=== PATIENT | female | born 1940 | race Asian ===

== ENCOUNTER 2016-08-20 09:39 | Inpatient (IN) | payer OTHER, MEDICAID ==
[2016-08-20 09:52] VITALS: BP 128/76
--- NOTE | 2016-08-20 09:55 | ED Physician Chart ---
Chief Complaint/HPI - Patient Information Date Seen:: 08/20/16 Time Seen:: 09:55 Chief Complaint:: SHORTNESS OF BREATH X 2 DAYS History of Present Illness:: This 76-year-old female has had difficulty with breathing for a number of years. 2 days ago the patient developed a cough, which on one occasion was productive of blood. The patient has had fever and chills over the past 2 days. Her shortness of breath is moderate and exacerbated by exertion. She denies any associated chest pain or diaphoresis. The patient denies any dysuria or hematuria does have urinary frequency. Her past medical history is negative for diabetes, hypertension and DVT. No prior history of pulmonary embolism. The patient denies any calf tenderness or peripheral edema. The patient does have generalized myalgias. Allergies:: Allergies Allergy/AdvReac Type Severity Reaction Status Date / Time No Known Allergies Allergy Verified 08/20/16 09:51 Vitals:: Vital Signs - 8 hr 08/20/16 09:51 BP 128/76 Review of Systems - Review of Systems General/Constitutional: Fever, Chills Skin: Skin lesions, No skin lesions, No rash Head: No headache, No light-headedness Eyes: No loss of vision, No diplopia ENT: No earache, No sore throat, No tinnitus Neck: Neck pain, Stiffness, No mass noted Pulmonary: SOB, Cough, Sputum, Other (1 episode of hemoptysis.) GI: No nausea, No vomiting, No diarrhea, No pain, No hematemesis G/U: No dysuria, Frequency, No hematuria Musculoskeletal: Bone or joint pain (generalized arthralgias.), No back pain, Muscle pain Hematopoietic: No bruising, No lymphadenopathy Allergic/Immuno: No urticaria, No angioedema Neurological: No syncope, No focal symptoms, Weakness (the patient has generalized weakness.), No headache, No seizure, No confusion, No vertigo Past Medical History - Past Medical History Past Medical History: No significant medical hx (the patient denies any prior history of diabetes, hypertension, hyperlipidemia, prior DVT, or pneumonia.) Social History: Non Smoker, No Alcohol, No Drug Use, Employment:: The patient is currently living with her sister. Surgical History: Cholecystectomy, Family Medical History - Family Member Brother Hx Family Cancer: No Hx Family Coronary Artery Disease: No Hx Family Congestive Heart Failure: No Hx Family Hypertension: No Hx Family Diabetes: No Hx Family Dementia: No Hx Family HIV: No Hx Family Hepatitis: No Hx Family Tuberculosis: No Physical Exam - Physical Examination General/Constitutional: Awake, Well-developed, well-nourished, Alert, GCS 15, Non-toxic appearing, Ambulatory Other Gen/Cons comments:: Mild respiratory distress. Head: Atraumatic Eyes: Lids, conjuctiva normal, PERRL, EOMI Skin: Nl inspection, No rash, No skin lesions, No ecchymosis, Well hydrated, No lymphadenopathy ENMT: External ears, nose nl, Nasal exam nl, Lips, teeth, gums nl, Oropharynx nl , Tonsils nl Neck: Nontender, Full ROM w/o pain, No JVD, No nuchal rigidity, No mass, No stridor Respiratory: Nl effort/Exclusion Other Respiratory comments:: The patient has scattered expiratory wheezing and bibasilar rales. Cardio Vascular: RRR, No murmur, gallop, rubs, NL S1 S2 Other Cardio Vascular comments:: Good peripheral pulses all 4 extremities. GI: No tenderness/rebounding/guarding, No organomegaly, No hernia, Normal BS's, Nondistended, No mass/bruits, No McBurney tenderness Other GI comments:: Rectal exam deferred at my discretion. : No CVA tenderness Extremities: No tenderness or effusion, Full ROM, normal strength in all extremities, No edema Neuro/Psych: Alert/oriented, DTR's symmetric, Normal sensory exam, Normal motor strength, Judgement/insight normal, Mood normal, No focal deficits Other Neuro/Psych comments:: Patient was not ambulated in the emergency department. Misc: Normal back, No paraspinal tenderness Labs/Radiology/EKG Results - Lab Results Results: Laboratory Tests 08/20/16 08/20/16 08/20/16 10:09 10:09 10:09 WBC 13.8 H D RBC 4.03 Hgb 12.8 Hct 37.6 D MCV 93.2 MCH 31.8 H MCHC Differential 34.1 RDW 12.2 Plt Count 206 D MPV 7.6 Band Neutrophils % 4 Neutrophils (Manual) 85 H Lymphocytes 3 L Monocytes 8 Platelet Estimate ADEQUATE Platelet Morphology NORMAL RBC Morph Micro Appear NORMAL Sodium 136 Potassium 3.3 L Chloride 104 Carbon Dioxide 23.0 Anion Gap 12.3 BUN 9 Creatinine 0.8 Est GFR ( Amer) TNP Est GFR (Non-Af Amer) TNP BUN/Creatinine Ratio 11.3 Glucose 121 H Whole Bld Lactic Acid Calcium 9.1 Total Bilirubin 2.2 H AST 114 H ALT 92 H Alkaline Phosphatase 99 Troponin I 0.02 B-Natriuretic Peptide Total Protein 7.2 Albumin 3.7 Globulin 3.5 Albumin/Globulin Ratio 1.1 08/20/16 08/20/16 10:09 10:53 WBC RBC Hgb Hct MCV MCH MCHC Differential RDW Plt Count MPV Band Neutrophils % Neutrophils (Manual) Lymphocytes Monocytes Platelet Estimate Platelet Morphology RBC Morph Micro Appear Sodium Potassium Chloride Carbon Dioxide Anion Gap BUN Creatinine Est GFR ( Amer) Est GFR (Non-Af Amer) BUN/Creatinine Ratio Glucose Whole Bld Lactic Acid 1.33 Calcium Total Bilirubin AST ALT Alkaline Phosphatase Troponin I B-Natriuretic Peptide 207.0 H Total Protein Albumin Globulin Albumin/Globulin Ratio CHEST x-ray: No cardiomegaly. No CHF. Calcifications noted in the aortic arch. No mediastinal widening. No areas of pulmonary consolidation or infiltrate. Pleural effusions or pneumothorax. Laboratory studies: Moderate leukocytosis of 13.8. No anemia. Thrombocytopenia. Electrolytes were all within the normal range except for a mild hypokalemia of 3.3. Renal function tests are normal. Whole blood lactic acid within the normal parameters. Mild elevation of the BNP of 207. Liver enzymes show elevation of the bilirubin level, AST and ALT. Assessment - Assessment General Assessment: CASE SUMMARY: 76-year-old female presented with a 2 day history of increased shortness of breath and cough. The sputum at one point in time was positive for bleeding. The patient has had no fever but has had chills yesterday. Physical examination the patient has some scattered expiratory wheezes and bilateral basilar rales. Chest x-ray was negative for cardiomegaly or CHF. No areas of pulmonary consolidation or infiltrate were present. There was no pneumothorax or pleural effusion. Electrocardiogram showed no ischemic findings. Patient's white count was just under 14,000 and she had mild elevation of her liver enzymes and bilirubin level. The patient met criteria for sepsis was treated with 30 mL per KG of normal saline. She also was treated with 2 g of ceftriaxone intravenously. [facility] observation and treatment of sepsis. ED Septic Shock - . Is Septic Shock (SBP<90, OR Lactate>4 mmol\L) present?: No - <6hrs of presentation: Vital Signs: Vital Signs - 8 hr 08/20/16 09:51 BP 128/76 Reassessment (Disposition) - Reassessment Reassessment Condition:: Improved - Diagnosis Diagnosis:: SEPSIS without septic shock. PROBABLE PNEUMONIA. - Aftercare/Follow up Instructions Aftercare/Follow-Up Instructions:: Counseled pt regarding lab results/diagnosis & need follow up, Counseled pt & family regarding lab results/diagnosis & need follow up - Patient Disposition Discharge/Transfer:: Acute Care w/in this hosp Accepting Physician:: Dr. Jaison kong and the patient. ED Discharge Plan - Patient Disposition Admit/Discharge/Transfer: Acute Care w/in this hosp Condition at Disposition: Stable
[2016-08-20 10:20] LABS: HEMOGLOBIN 12.8 gm/dL (11.7-16.1); MEAN CELL VOLUME 93.2 fl (81-100); MEAN CORPUSCULAR HEMOGLOBIN 31.8 pg (27.0-31.0); MEAN CORPUSCULAR HGB CONC 34.1 pg (28.0-36.0); MEAN PLATELET VOLUME 7.6 fl; RED BLOOD COUNT 4.03 Mil/cmm (3.80-5.20); RED CELL DISTRIBUTION WIDTH 12.2 % (11.5-20.0)
--- NOTE | 2016-08-20 10:27 | Diagnostic Imaging Report ---
Portable chest x-ray History: Shortness of breath Allowing for portable technique the heart size is normal. Atherosclerotic calcification seen within the aortic arch. No focal pulmonary parenchymal processes. No hilar or mediastinal abnormalities. Impression: 1. No acute abnormalities 2. Atherosclerotic vascular change
[2016-08-20 10:30] LABS: HEMATOCRIT 37.6 % (35.0-45.0); PLATELET COUNT 206 Th/cmm (150-400); WHITE BLOOD COUNT 13.8 Th/cmm (4.8-10.8)
[2016-08-20 10:34] LABS: ALB/GLOB RATIO 1.1 (1.0-1.8); ALKALINE PHOSPHATASE 99 U/L (34-104); ANION GAP 12.3 (7.0-16.0); BILIRUBIN,TOTAL 2.2 mg/dL (0.3-1.0); BUN - UREA NITROGEN 9 mg/dL (7-25); BUN/CREATININE RATIO 11.3; CALCIUM SERUM 9.1 mg/dL (8.6-10.3); CHLORIDE 104 mEq/L (98-107); CREATININE - SERUM 0.8 mg/dL (0.6-1.2); GLUCOSE 121 mg/dL (70-105); POTASSIUM SERUM 3.3 mEq/L (3.5-5.1); SGOT 114 U/L (13-39); SGPT/ALT 92 U/L (7-52); SODIUM SERUM 136 mEq/L (136-145)
[2016-08-20] MEDS ORDERED: Albuterol/Ipratropium Neb 3 ML AERS HHN ONE ×2 (10:43→11:03)
[2016-08-20 11:16] LABS: BAND NEUTROPHILE 4 % (0-10); NEUTROPHILS 85 % (40-80); TOTAL CELLS COUNTED 100
[2016-08-20 11:17] LABS: PLATELET ESTIMATE ADEQUATE (NORMAL); PLATELET MORPHOLOGY NORMAL (NORMAL)
[2016-08-20] MEDS ORDERED: Sodium Chloride 0.9% 1,000 ML IV ONE (11:34)
[2016-08-20] MEDS ORDERED: cefTRIAXone 2 GM in Sodium Chloride 0.9% 100 ML IV ONE (11:38)
[2016-08-20] MEDS ORDERED: Maalox 30 mL Cup PO PRN (15:14)
[2016-08-20] MEDS ORDERED: Ipratropium Neb 0.5 mg/2.5 mL UD HHN ONE (15:23)
[2016-08-20] MEDS ORDERED: Albuterol Nebulizer 2.5mg/3mL HHN ONE (15:23)
[2016-08-20] MEDS: Albuterol Nebulizer 2.5mg/3mL IH SCH (15:26)
[2016-08-20 16:31] LABS: URINE COLOR YELLOW
[2016-08-20 16:32] LABS: URINE BILIRUBIN SMALL (NEGATIVE); URINE BLOOD NEGATIVE (NEGATIVE); URINE GLUCOSE (UA) NEGATIVE (NEGATIVE); URINE KETONE 40 mg/dL (NEGATIVE); URINE PROTEIN TRACE mg/dL (NEGATIVE)
[2016-08-20 16:33] LABS: URINE BACTERIA FEW /hpf (NONE SEEN); URINE EPITHELIAL CELLS FEW /lpf (FEW); URINE RBC NONE SEEN /hpf (0-5); URINE WBC 0-2 /hpf (0-5)
[2016-08-20] MEDS ORDERED: Pneumococcal Vaccine 0.5 mL Vial IM ONE (16:56)
[2016-08-20] MEDS ORDERED: Ipratropium Neb 0.5 mg/2.5 mL UD IH SCH (17:00)
[2016-08-20] MEDS: D5-0.45NS w/20 mEq KCL 1,000 ML IV SCH (17:56)
[2016-08-20] MEDS: methylPREDNISolone SS 40 mg Vial IVP SCH (20:52)
--- NOTE | 2016-08-20 21:18 | Admit Criteria Form ---
Admit Criteria Forms - Admit Criteria Diagnosis: SEPSIS and OTHER FEBRILE ILLNESS, W/O FOCAL INFECTION Clinical Indications for Admission to Inpatient Care ( Place 'X' for any and all applicable criteria): Admission is indicated for ANY ONE of the following (1)(2)(3)(4): [ ] I. Bacteremia [X]II. Suspected or identified specific infection requiring hospitalization (eg, meningitis, endocarditis) [ ]III. Hemodynamic instability [ ]IV. Altered mental status [ ]V. Failure or unavailability of outpatient antimicrobial treatment [ ]. Hypoxemia [ ]VII. Seizures [ ]VIII. High-risk febrile neutropenia [ ]IX. Need for parenteral antibiotic in patient who is likely to abuse vascular access device (eg, injection drug user) [A](7) [ ]X. Temperature greater than 104.9 degrees F (40.5 degrees C) (oral) [ ]XI. Inpatient admission required rather than observation care because of ANY ONE of the following: [ ]1) Specific infection identified that is too severe for outpatient treatment or observation care trial [ ]2) Metabolic disorder (eg, hypoglycemia, hyperglycemia, metabolic acidosis) that is severe or persistent [ ]3) Temperature greater than 103.1 degrees F (39.5 degrees C) ( oral) that is not responsive to observation care treatment [ ]4) IV fluid to replace significant ongoing (eg, for over 24 hours) losses (> 3 L/m2 per day) [ ]5) Supplemental oxygen or respiratory treatments for over 24 hours that is performable only in acute inpatient setting [ ]6) Parenteral nutrition regimen need that must be implemented on inpatient basis [ ]7) Strict or protective (eg, laminar flow) isolation [ ]8) Other condition, treatment or monitoring requiring inpatient admission Extended stay beyond goal length of stay may be needed for(1)(3) [ ]a) Sepsis or septic shock(22) [ ]b) Positive blood cultures [ ]c) Insufficient oral intake [ ]d) High-risk febrile neutropenia(29)(30) [ ]e) Continued fever and clinical instability [ ]f) Clinically active comorbid illness (e.g,heart failure, renal failure , diabetes) The original [facility] [employer] content created by Trisha Park has been revised. The portions of the content which have been revised are identified through the use of italic text or in bold, and Trisha [employer] has neither reviewed nor approved the modified material. All other unmodified content is copyright [facility]. Please see references footnoted in the original [facility] edition 2016 Admit Criteria Met?: Yes
[2016-08-21] MEDS: methylPREDNISolone SS 40 mg Vial IVP SCH ×3 (05:15→20:15)
[2016-08-21] MEDS: Albuterol Nebulizer 2.5mg/3mL IH SCH ×4 (07:13→19:51)
[2016-08-21] MEDS: Ipratropium Neb 0.5 mg/2.5 mL UD HHN SCH ×4 (07:14→19:51)
[2016-08-21 07:38] LABS: HEMOGLOBIN 12.2 gm/dL (11.7-16.1); NEUTROPHILE ABSOLUTE 6.7 Th/cmm (1.8-8.0)
[2016-08-21 07:44] LABS: % BASOPHILS 0.2 % (0.0-2.0); % EOSINOPHILS 0.2 % (0.0-5.0); % MONOCYTES 1.6 % (2.0-10.0); MEAN CELL VOLUME 94.8 fl (81-100); MEAN CORPUSCULAR HEMOGLOBIN 32.2 pg (27.0-31.0); MEAN CORPUSCULAR HGB CONC 33.9 pg (28.0-36.0); PLATELET COUNT 196 Th/cmm (150-400); RED CELL DISTRIBUTION WIDTH 12.6 % (11.5-20.0)
[2016-08-21] MEDS: guaiFENesin 200 MG/10 ML UDC PO PRN ×4 (07:53→23:15)
[2016-08-21] MEDS: D5-0.45NS w/20 mEq KCL 1,000 ML IV SCH (07:53)
[2016-08-21 08:04] LABS: ALKALINE PHOSPHATASE 93 U/L (34-104); BILIRUBIN,TOTAL 0.9 mg/dL (0.3-1.0); BUN - UREA NITROGEN 9 mg/dL (7-25); BUN/CREATININE RATIO 12.9; CALCIUM SERUM 8.8 mg/dL (8.6-10.3); CARBON DIOXIDE 23.1 mEq/L (21.0-31.0); CHLORIDE 109 mEq/L (98-107); CREATININE - SERUM 0.7 mg/dL (0.6-1.2); GLUCOSE 162 mg/dL (70-105); POTASSIUM SERUM 4.1 mEq/L (3.5-5.1); SGOT 54 U/L (13-39); SGPT/ALT 80 U/L (7-52); SODIUM SERUM 137 mEq/L (136-145)
--- NOTE | 2016-08-21 14:34 | Internal Medicine Prog Note ---
Internal Medicine Subjective - Subjective Patient seen and examined:: with staff, chart reviewed Patient is:: awake, verbal, interactive Patient Complaints of:: congestion, cough, other (shoulder and chest discomfort w coughing and movement) Per staff patient is:: no adverse event, poor appetite Internal Medicine Objective - Results Result Diagrams: 08/21/16 07:27 08/21/16 07:27 Recent Labs: Laboratory Last Values WBC 8.0 Th/cmm (4.8-10.8) D 08/21/16 07: RBC 3.80 Mil/cmm (3.80-5.20) 08/21/16 07: Hgb 12.2 gm/dL (11.7-16.1) 08/21/16 07: Hct 36.0 % (35.0-45.0) 08/21/16 07: MCV 94.8 fl (81-100) 08/21/16 07: MCH 32.2 pg (27.0-31.0) H 08/21/16 07: MCHC Differential 33.9 pg (28.0-36.0) 08/21/16 07: RDW 12.6 % (11.5-20.0) 08/21/16 07: Plt Count 196 Th/cmm (150-400) 08/21/16 07:27 MPV 8.0 fl 08/21/16 07:27 Neutrophils % 83.0 % (40.0-80.0) H 08/21/16 07:27 Band Neutrophils % 4 % (0-10) 08/20/16 10:09 Lymphocytes % 15.0 % (20.0-50.0) L 08/21/16 07:27 Monocytes % 1.6 % (2.0-10.0) L 08/21/16 07:27 Eosinophils % 0.2 % (0.0-5.0) 08/21/16 07:27 Basophils % 0.2 % (0.0-2.0) 08/21/16 07:27 Neutrophils (Manual) 85 % (40-80) H 08/20/16 10:09 Lymphocytes 3 % (20-50) L 08/20/16 10:09 Monocytes 8 % (2-10) 08/20/16 10:09 Platelet Estimate ADEQUATE (NORMAL) 08/20/16 10:09 Platelet Morphology NORMAL (NORMAL) 08/20/16 10:09 RBC Morph Micro Appear NORMAL (NORMAL) 08/20/16 10:09 Sodium 137 mEq/L (136-145) 08/21/16 07:27 Potassium 4.1 mEq/L (3.5-5.1) 08/21/16 07:27 Chloride 109 mEq/L (98-107) H 08/21/16 07:27 Carbon Dioxide 23.1 mEq/L (21.0-31.0) 08/21/16 07:27 Anion Gap 9.0 (7.0-16.0) 08/21/16 07:27 BUN 9 mg/dL (7-25) 08/21/16 07:27 Creatinine 0.7 mg/dL (0.6-1.2) 08/21/16 07:27 Est GFR ( Amer) TNP 08/21/16 07:27 Est GFR (Non-Af Amer) TNP 08/21/16 07:27 BUN/Creatinine Ratio 12.9 08/21/16 07:27 Glucose 162 mg/dL (70-105) H 08/21/16 07:27 Hemoglobin A1c % 5.6 % (4.0-6.0) 08/21/16 07:27 Whole Bld Lactic Acid 1.33 mmol/L (0.60-1.99) 08/20/16 10:53 Calcium 8.8 mg/dL (8.6-10.3) 08/21/16 07:27 Magnesium 2.0 mg/dL (1.9-2.7) 08/21/16 07:27 Total Bilirubin 0.9 mg/dL (0.3-1.0) 08/21/16 07:27 AST 54 U/L (13-39) H 08/21/16 07:27 ALT 80 U/L (7-52) H 08/21/16 07:27 Alkaline Phosphatase 93 U/L (34-104) 08/21/16 07:27 Troponin I 0.02 ng/mL (0.01-0.05) 08/20/16 10:09 B-Natriuretic Peptide 207.0 pg/mL (5.0-100.0) H 08/20/16 10:09 Total Protein 6.6 gm/dL (6.0-8.3) 08/21/16 07:27 Albumin 3.3 gm/dL (3.7-5.3) L 08/21/16 07:27 Globulin 3.3 gm/dL 08/21/16 07:27 Albumin/Globulin Ratio 1.0 (1.0-1.8) 08/21/16 07:27 TSH 0.52 uIU/ml (0.34-5.60) 08/21/16 07:27 Urine Source CLEAN C 08/20/16 16:00 Urine Color YELLOW 08/20/16 16:00 Urine Clarity SLIGHT HAZY (CLEAR) 08/20/16 16:00 Urine pH 7.0 08/20/16 16:00 Ur Specific [place] 1.015 (1.005-1.030) 08/20/16 16:00 Urine Protein TRACE mg/dL (NEGATIVE) 08/20/16 16:00 Urine Glucose (UA) NEGATIVE mg/dL (NEGATIVE) 08/20/16 16:00 Urine Ketones 40 mg/dL (NEGATIVE) H 08/20/16 16:00 Urine Blood NEGATIVE (NEGATIVE) 08/20/16 16:00 Urine Nitrate NEGATIVE (NEGATIVE) 08/20/16 16:00 Urine Bilirubin SMALL (NEGATIVE) H 08/20/16 16:00 Urine Urobilinogen 2.0 E.U./dL (0.2 - 1.0) 08/20/16 16:00 Ur Leukocyte Esterase TRACE (NEGATIVE) H 08/20/16 16:00 Urine RBC NONE SEEN /hpf (0-5) 08/20/16 16:00 Urine WBC 0-2 /hpf (0-5) 08/20/16 16:00 Ur Epithelial Cells FEW /lpf (FEW) 08/20/16 16:00 Urine Bacteria FEW /hpf (NONE SEEN) 08/20/16 16:00 - Physical Exam Vitals and I&O: Vital Signs Temp 98.5 F 08/21/16 08:00 Pulse 62 08/21/16 11:11 Resp 19 08/21/16 12:00 BP 107/66 08/21/16 08:00 Pulse Ox 98 08/21/16 11:11 Intake & Output 08/20/16 08/21/16 08/21/16 18:59 06:59 18:59 Intake Total 600 1000 Balance 600 1000 Intake: Intake, IV Amount 100 1000 Cefepime 1 gm In Dextrose 100 5% 50 ml @ 100 mls/hr IV Q12H [facility] Rx#:[id number] D5-0.45NS w/20 mEq KCL 1, 1000 000 ml @ 75 mls/hr IV . [id number] [facility] Rx#:[id number] Oral 500 Other: # Voids 2 Stool Characteristics Soft Soft Formed Formed Active Medications: Current Medications Acetaminophen (Tylenol) 650 mg PO Q4HR PRN PRN Reason: Pain or Fever >101 Stop: 10/19/16 15:13 Last Admin: 08/21/16 12:57 Dose: 650 mg Al Hydrox/Mg Hydrox/Simethicone (Maalox) 30 ml PO Q6HR PRN PRN Reason: Constipation Stop: 10/19/16 15:13 Albuterol Sulfate (Albuterol 2.5mg/3ml Neb Ud) 2.5 mg IH QID [facility] Stop: 10/19/16 16:59 Last Admin: 08/21/16 11:05 Dose: 2.5 mg Guaifenesin (Robitussin) 200 mg PO Q4HR PRN PRN Reason: Cough or Congestion Stop: 10/19/16 15:13 Last Admin: 08/21/16 12:37 Dose: 200 mg Guaifenesin (Mucinex) 600 mg PO Q12HR [facility] Stop: 10/20/16 20:59 Heparin Sodium (Porcine) (Heparin) 5,000 units SUBQ Q12HR [facility] Stop: 10/19/16 20:59 Last Admin: 08/21/16 08:01 Dose: 5,000 units Cefepime HCl 1 gm/ Dextrose 50 mls @ 100 mls/hr IV Q12H [facility] Stop: 10/19/16 15:14 Last Infusion: 08/21/16 03:39 Dose: Infused Sodium Chloride (Nacl 0.45%) 1,000 mls @ 80 mls/hr IV .[id number] [facility] Stop: 10/20/16 14:44 Ipratropium [place] (Atrovent Neb 0.5mg/2.5ml) 0.5 mg HHN QIDRT [facility] Stop: 10/19/16 16:59 Last Admin: 08/21/16 11:05 Dose: 0.5 mg Ondansetron HCl (Zofran) 4 mg IV Q8H PRN PRN Reason: Nausea / Vomiting Stop: 10/19/16 15:13 Tramadol HCl (Ultram) 50 mg PO Q6HR PRN PRN Reason: Pain (Moderate) Stop: 10/20/16 14:30 Zolpidem Tartrate (Ambien) 10 mg PO HS PRN PRN Reason: Insomnia Stop: 10/19/16 15:12 Last Admin: 08/20/16 21:52 Dose: 10 mg General: congested HEENT: NC/AT, PERRLA Neck: Supple, No JVD Lungs: congested, wheezing, rales, ronchi Cardiovascular: RRR, Normal S1, Normal S2 Abdomen: soft non-tender, globular, positive bowel sound Extremities: excoriation Neurological: no change - Procedures Procedures: Procedures Procedure Code Date D & C NEC 69.09 12/05/95 DILATION AND CURETTAGE 19902 12/05/95 DX BRONCHOSCOPE/LAVAGE 69421 03/22/10 ENDOSCOPIC BRONCHIAL BX 33.24 03/22/10 IRIDECTOMY NEC 12.14 03/25/09 LAPAROSCOPIC CHOLECYSTECTOMY 51.23 02/20/12 LAPAROSCOPIC CHOLECYSTECTOMY 76920 02/20/12 REVISION OF IRIS 93579 03/25/09 Internal Medicine Assmt/Plan - Assessment Assessment: fever sepsis acute bronchitis and copd exac hyperglycemia leukocytosis hypokalemia - Plan Plan: cont on iv abx cont on iv hydration correct lytes jenna rn Nutritional Asmnt/Malnutr-PDOC - Dietary Evaluation Malnutrition Findings (Please click <Entered> for more info): Nutritional Asmnt/Malnutrition Start: 08/21/16 11: 55 Text: Status: Complete Freq: Document 08/21/16 11:55 [facility] (Rec: 08/21/16 12:02 [facility] [id number]) Nutritional Asmnt/Malnutrition Patient General Information Nutritional Screening High Risk Screening Diagnosis Sepsis without septic shock, probable pneumonia Pertinent Medical Hx/Surgical Hx None Subjective Information Pt is a 76-year-old female admitted with chief complaint of shortness of breath for 2 days. Pt was awake and alert during time of visit. Pt is a good historian. RD offered diet education but pt declined . Pt appears well nourished with no signs of muscle or fat depletion. Teeth intact. Pt reports UBW 125# one year ago and recently weighed 118# at clinic. Pt admits she does not eat breakfast regularly at home, except for coffee, but she would like to change that lifestyle. Current Diet Order/ Nutrition Support Low sodium Patient / S.O Can Pertinent Medications Cefepime, Solu-Medrol, Zofran, D5-0.45 ns with 20 Meq KCl Pertinent Labs (08/21) Glucose 162H (likely related to steroids), AST 54H and ALT 80H (improved) Nutritional Hx/Data Height 1.5 m Height (Calculated Centimeters) 149.9 Current Weight (lbs) 53.524 kg Weight (Calculated Kilograms) 53.5 Weight (Calculated Grams) 18757.9 Usual body Weight (lbs) 125 Recent Weight Change Yes Weight Status Approriate GI Symptoms GI Symptoms None Food Allergies No Cultural/Ethnic/Gnosticist Belief No cultural preferences given, however, pt does not eat beef . She states she like vegetables and banana. Usual diet at home Regular Skin Integrity/Comment: Basim 21. Skin intact. Current %PO Good (75-100%) Estimated Nutritional Goals BEE in Kcals: Using Current wt Calories/Kcals/Kg Based on CBW 53.6 kg with consideration of sepsis Kcals Calculated 8628-7234 kcals/day (30-35 kcals/kg) Protein: Using Current wt Protein g/kg: Based on CBW 53.6 kg with consideration of sepsis Protein Calculated 64-80 gm/day (1.2-1.5 gm/kg) Fluid: ml 8457-1484 ml/day (1 ml/kcal) Nutritional Problem 1. Problem Problem Increased energy and protein needs related to Etiology increased metabolic demands as evidenced by Signs/Symptoms: diagnosis sepsis and possible pneumonia (per ER report). Malnutrition Alert Is there a minimum of two criteria No selected? Query Text:Check all the applicable criteria. A minimum of two criteria are recommended for diagnosis of either severe or non-severe malnutrition. Malnutrition Related to Morbid Obesity Malnutrition related to morbid obesity No Intervention/Recommendation Comments 1. Continue with current diet. Current diet and PO intake is adequate to meet estimated nutritional needs. [place] food preferences. Expected Outcomes/Goals Expected Outcomes/Goals Have pt meet at least 75% of estimated nutritional needs. Physician Parameters for PEM Normal Weight % 90% - 110% (Normal) Body Mass Index (BMI) 19 - 24 (Normal) Serum Albumin (g/dl) 3.1 - 3.4 (Mild) 08/21/16 12:02 Dietitian Notes by Rupa Barnhart Nutrition Note Initial Nutrition Assessment completed by Rupa Barnhart on 08/21/16. Please refer to nutrition assessment under Patient Care tab of EMR. Nutrition Recommendations: 1. Continue with current diet. Current diet and PO intake is adequate to meet estimated nutritional needs. [place] food preferences. F/U in 3-5 days as Moderate risk, 08/24-08/26. Initialized on 08/21/16 12:02 - END OF NOTE
[2016-08-21] MEDS: Sodium Chloride 0.45% 1,000 ML IV SCH (16:22)
[2016-08-22] MEDS: methylPREDNISolone SS 40 mg Vial IVP SCH ×3 (05:03→21:39)
[2016-08-22] MEDS: Sodium Chloride 0.45% 1,000 ML IV SCH ×2 (05:08→18:45)
[2016-08-22] MEDS: Albuterol Nebulizer 2.5mg/3mL IH SCH ×4 (07:09→19:28)
[2016-08-22] MEDS: Ipratropium Neb 0.5 mg/2.5 mL UD HHN SCH ×4 (07:09→19:28)
[2016-08-22] MEDS: guaiFENesin 200 MG/10 ML UDC PO PRN (09:09)
--- NOTE | 2016-08-22 09:12 | Diagnostic Imaging Report ---
Left shoulder (3 views) HISTORY Degenerative changes with marked narrowing and mild hypertrophic bone formation about the acromioclavicular joint. Mild degenerative changes noted along the margin of the greater tuberosity. No acute abnormalities. No fractures. No dislocation. IMPRESSION: 1. No acute abnormalities 2. Degenerative changes
--- NOTE | 2016-08-22 10:35 | History & Physical ---
CHIEF COMPLAINT: Fever and shortness of breath. HISTORY OF PRESENT ILLNESS: This is a 76-year-old [place] female with history of asthma, who was admitted secondary to fever, ongoing for about a week, increasing shortness of breath. The patient was evaluated in the ER, had a fever of 101. The patient was also with elevated white count. The patient's complaints are consistent with sepsis. PAST MEDICAL HISTORY: As mentioned in the history of present illness. PAST SURGICAL HISTORY: ____ surgery. ALLERGIES: ASMANEX and ATROVENT. FAMILY HISTORY: Noncontributory. SOCIAL HISTORY: Exposed to smoking. Nondrinker. Denies any drug use. 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 REVIEW OF SYSTEMS: GENERAL: Complains of not feeling well. HEENT: No blurred vision. NECK: No neck pain. LUNGS: The patient with asthma. The patient has been exposed to a lot of smoking. HEART: The patient denies hypertension or coronary artery disease. ABDOMEN: No nausea, vomiting, or abdominal pain. GENITOURINARY: The patient denies increased frequency or dysuria. NEUROLOGIC: No headache, seizure, or syncope. PSYCHIATRIC: Stable. PHYSICAL EXAMINATION: VITAL SIGNS: Blood pressure 104/58, respirations 18, temperature 101.7. GENERAL: Elderly female, appears her stated age. NECK: Supple. No mass. LUNGS: Decreased breath sounds, few rhonchi. HEART: Regular rate and rhythm without appreciable murmur. ABDOMEN: Soft and nontender. EXTREMITIES: No clubbing, cyanosis, or edema. NEUROLOGIC: Limited. LABORATORY DATA: WBC 13.8, hemoglobin 12, platelets 206. Sodium 136, potassium 3.2, BUN 9, creatinine 0.8, blood sugar 121. AST and ALT 140 and 92 respectively. BNP ____. ASSESSMENT AND PLAN: Fever, sepsis, acute bronchitis, asthma, acute asthma exacerbation; leukocytosis; hypokalemia; elevated liver function tests. We will continue the patient on oxygen and bronchodilator treatment, continue intravenous antibiotic, blood gas have been sent. Continue with sepsis protocol. We will review the patient's chest x-ray. We will check the patient's hemoglobin A1c as well. We will continue on intravenous antibiotics and intravenous hydration. We will continue to monitor the patient closely. JOB# [id number]
--- NOTE | 2016-08-22 11:59 | Internal Medicine Prog Note ---
Internal Medicine Subjective - Subjective Service Date: 08/22/16 (awake, alert, noted with productive cough, per patient she coughed up blood earlier this morning and lastnight she states it was thick associated with small clot of blood. ) Patient seen and examined:: with staff Patient is:: awake Internal Medicine Objective - Results Result Diagrams: 08/21/16 07:27 08/21/16 07:27 Recent Labs: Laboratory Last Values WBC 8.0 Th/cmm (4.8-10.8) D 08/21/16 07:27 RBC 3.80 Mil/cmm (3.80-5.20) 08/21/16 07:27 Hgb 12.2 gm/dL (11.7-16.1) 08/21/16 07: Hct 36.0 % (35.0-45.0) 08/21/16 07: MCV 94.8 fl (81-100) 08/21/16 07: MCH 32.2 pg (27.0-31.0) H 08/21/16 07: MCHC Differential 33.9 pg (28.0-36.0) 08/21/16 07:27 RDW 12.6 % (11.5-20.0) 08/21/16 07:27 Plt Count 196 Th/cmm (150-400) 08/21/16 07:27 MPV 8.0 fl 08/21/16 07:27 Neutrophils % 83.0 % (40.0-80.0) H 08/21/16 07:27 Band Neutrophils % 4 % (0-10) 08/20/16 10:09 Lymphocytes % 15.0 % (20.0-50.0) L 08/21/16 07:27 Monocytes % 1.6 % (2.0-10.0) L 08/21/16 07:27 Eosinophils % 0.2 % (0.0-5.0) 08/21/16 07:27 Basophils % 0.2 % (0.0-2.0) 08/21/16 07:27 Neutrophils (Manual) 85 % (40-80) H 08/20/16 10:09 Lymphocytes 3 % (20-50) L 08/20/16 10:09 Monocytes 8 % (2-10) 08/20/16 10:09 Platelet Estimate ADEQUATE (NORMAL) 08/20/16 10:09 Platelet Morphology NORMAL (NORMAL) 08/20/16 10:09 RBC Morph Micro Appear NORMAL (NORMAL) 08/20/16 10:09 Sodium 137 mEq/L (136-145) 08/21/16 07:27 Potassium 4.1 mEq/L (3.5-5.1) 08/21/16 07:27 Chloride 109 mEq/L (98-107) H 08/21/16 07:27 Carbon Dioxide 23.1 mEq/L (21.0-31.0) 08/21/16 07:27 Anion Gap 9.0 (7.0-16.0) 08/21/16 07:27 BUN 9 mg/dL (7-25) 08/21/16 07:27 Creatinine 0.7 mg/dL (0.6-1.2) 08/21/16 07:27 Est GFR ( Amer) TNP 08/21/16 07:27 Est GFR (Non-Af Amer) TNP 08/21/16 07:27 BUN/Creatinine Ratio 12.9 08/21/16 07:27 Glucose 162 mg/dL (70-105) H 08/21/16 07:27 Hemoglobin A1c % 5.6 % (4.0-6.0) 08/21/16 07:27 Whole Bld Lactic Acid 1.33 mmol/L (0.60-1.99) 08/20/16 10:53 Calcium 8.8 mg/dL (8.6-10.3) 08/21/16 07:27 Magnesium 2.0 mg/dL (1.9-2.7) 08/21/16 07:27 Total Bilirubin 0.9 mg/dL (0.3-1.0) 08/21/16 07:27 AST 54 U/L (13-39) H 08/21/16 07:27 ALT 80 U/L (7-52) H 08/21/16 07:27 Alkaline Phosphatase 93 U/L (34-104) 08/21/16 07:27 Troponin I 0.02 ng/mL (0.01-0.05) 08/20/16 10:09 B-Natriuretic Peptide 207.0 pg/mL (5.0-100.0) H 08/20/16 10:09 Total Protein 6.6 gm/dL (6.0-8.3) 08/21/16 07:27 Albumin 3.3 gm/dL (3.7-5.3) L 08/21/16 07:27 Globulin 3.3 gm/dL 08/21/16 07:27 Albumin/Globulin Ratio 1.0 (1.0-1.8) 08/21/16 07:27 TSH 0.52 uIU/ml (0.34-5.60) 08/21/16 07:27 Urine Source CLEAN C 08/20/16 16:00 Urine Color YELLOW 08/20/16 16:00 Urine Clarity SLIGHT HAZY (CLEAR) 08/20/16 16:00 Urine pH 7.0 08/20/16 16:00 Ur Specific [place] 1.015 (1.005-1.030) 08/20/16 16:00 Urine Protein TRACE mg/dL (NEGATIVE) 08/20/16 16:00 Urine Glucose (UA) NEGATIVE mg/dL (NEGATIVE) 08/20/16 16:00 Urine Ketones 40 mg/dL (NEGATIVE) H 08/20/16 16:00 Urine Blood NEGATIVE (NEGATIVE) 08/20/16 16:00 Urine Nitrate NEGATIVE (NEGATIVE) 08/20/16 16:00 Urine Bilirubin SMALL (NEGATIVE) H 08/20/16 16:00 Urine Urobilinogen 2.0 E.U./dL (0.2 - 1.0) 08/20/16 16:00 Ur Leukocyte Esterase TRACE (NEGATIVE) H 08/20/16 16:00 Urine RBC NONE SEEN /hpf (0-5) 08/20/16 16:00 Urine WBC 0-2 /hpf (0-5) 08/20/16 16:00 Ur Epithelial Cells FEW /lpf (FEW) 08/20/16 16:00 Urine Bacteria FEW /hpf (NONE SEEN) 08/20/16 16:00 - Physical Exam Vitals and I&O: Vital Signs Temp 98.7 F 08/22/16 08:00 Pulse 66 08/22/16 11:08 Resp 18 08/22/16 11:08 BP 129/68 08/22/16 08:00 Pulse Ox 95 08/22/16 11:08 Intake & Output 08/21/16 08/22/16 08/22/16 18:59 06:59 18:59 Intake Total 2700 1550 Balance 2700 1550 Intake: Intake, IV Amount 1050 1050 Cefepime 1 gm In Dextrose 50 50 5% 50 ml @ 100 mls/hr IV Q12H [facility] Rx#:[id number] D5-0.45NS w/20 mEq KCL 1, 1000 000 ml @ 75 mls/hr IV . [id number] [facility] Rx#:[id number] Sodium Chloride 0.45% 1, 1000 000 ml @ 80 mls/hr IV . [id number] [facility] Rx#:[id number] Oral 1650 500 Other: # Voids 4 2 # Bowel Movements 1 Stool Characteristics Soft Formed Active Medications: Current Medications Acetaminophen (Tylenol) 650 mg PO Q4HR PRN PRN Reason: Pain or Fever >101 Stop: 10/19/16 15:13 Last Admin: 08/21/16 12:57 Dose: 650 mg Al Hydrox/Mg Hydrox/Simethicone (Maalox) 30 ml PO Q6HR PRN PRN Reason: Constipation Stop: 10/19/16 15:13 Albuterol Sulfate (Albuterol 2.5mg/3ml Neb Ud) 2.5 mg IH QID [facility] Stop: 10/19/16 16:59 Last Admin: 08/22/16 11:02 Dose: 2.5 mg Guaifenesin (Robitussin) 200 mg PO Q4HR PRN PRN Reason: Cough or Congestion Stop: 10/19/16 15:13 Last Admin: 08/22/16 09:09 Dose: 200 mg Guaifenesin (Mucinex) 600 mg PO Q12HR [facility] Stop: 10/20/16 20:59 Last Admin: 08/22/16 09:09 Dose: 600 mg Heparin Sodium (Porcine) (Heparin) 5,000 units SUBQ Q12HR [facility] Stop: 10/19/16 20:59 Last Admin: 08/22/16 09:09 Dose: 5,000 units Cefepime HCl 1 gm/ Dextrose 50 mls @ 100 mls/hr IV Q12H [facility] Stop: 10/19/16 15:14 Last Infusion: 08/22/16 03:42 Dose: Infused Sodium Chloride (Nacl 0.45%) 1,000 mls @ 80 mls/hr IV .[id number] [facility] Stop: 10/20/16 14:44 Last Admin: 08/22/16 05:08 Dose: 80 mls/hr Ipratropium [place] (Atrovent Neb 0.5mg/2.5ml) 0.5 mg HHN QIDRT [facility] Stop: 10/19/16 16:59 Last Admin: 08/22/16 11:02 Dose: 0.5 mg Methylprednisolone Sodium Succinate (Solu-Medrol) 40 mg IVP Q8HR [facility] Stop: 10/20/16 14:29 Last Admin: 08/22/16 05:03 Dose: 40 mg Ondansetron HCl (Zofran) 4 mg IV Q8H PRN PRN Reason: Nausea / Vomiting Stop: 10/19/16 15:13 Tramadol HCl (Ultram) 50 mg PO Q6HR PRN PRN Reason: Pain (Moderate) Stop: 10/20/16 14:30 Last Admin: 08/21/16 23:15 Dose: 50 mg Zolpidem Tartrate (Ambien) 10 mg PO HS PRN PRN Reason: Insomnia Stop: 10/19/16 15:12 Last Admin: 08/21/16 23:15 Dose: 10 mg General: weak, alert HEENT: NC/AT Neck: Supple Lungs: ronchi Cardiovascular: RRR, Normal S1, Normal S2, without murmur Abdomen: soft non-tender, non-distended, positive bowel sound - Procedures Procedures: Procedures Procedure Code Date D & C NEC 69.09 12/05/95 DILATION AND CURETTAGE 39159 12/05/95 DX BRONCHOSCOPE/LAVAGE 53330 03/22/10 ENDOSCOPIC BRONCHIAL BX 33.24 03/22/10 IRIDECTOMY NEC 12.14 03/25/09 LAPAROSCOPIC CHOLECYSTECTOMY 51.23 02/20/12 LAPAROSCOPIC CHOLECYSTECTOMY 67071 02/20/12 REVISION OF IRIS 62310 03/25/09 Internal Medicine Assmt/Plan - Assessment Assessment: fever sepsis acute bronchitis and copd exac hyperglycemia leukocytosis hypokalemia - Plan Plan: sputum cx ivabx monitor for fever f/u labs bronchodilators cpm Nutritional Asmnt/Malnutr-PDOC - Dietary Evaluation Malnutrition Findings (Please click <Entered> for more info): Nutritional Asmnt/Malnutrition Start: 08/21/16 11: 55 Text: Status: Complete Freq: Document 08/21/16 11:55 [facility] (Rec: 08/21/16 12:02 [facility] [id number]) Nutritional Asmnt/Malnutrition Patient General Information Nutritional Screening High Risk Screening Diagnosis Sepsis without septic shock, probable pneumonia Pertinent Medical Hx/Surgical Hx None Subjective Information Pt is a 76-year-old female admitted with chief complaint of shortness of breath for 2 days. Pt was awake and alert during time of visit. Pt is a good historian. RD offered diet education but pt declined . Pt appears well nourished with no signs of muscle or fat depletion. Teeth intact. Pt reports UBW 125# one year ago and recently weighed 118# at clinic. Pt admits she does not eat breakfast regularly at home, except for coffee, but she would like to change that lifestyle. Current Diet Order/ Nutrition Support Low sodium Patient / S.O Can Pertinent Medications Cefepime, Solu-Medrol, Zofran, D5-0.45 ns with 20 Meq KCl Pertinent Labs (08/21) Glucose 162H (likely related to steroids), AST 54H and ALT 80H (improved) Nutritional Hx/Data Height 4 ft 11 in Height (Calculated Centimeters) 149.9 Current Weight (lbs) 118 lb Weight (Calculated Kilograms) 53.5 Weight (Calculated Grams) 42911.9 Usual body Weight (lbs) 125 Recent Weight Change Yes Weight Status Approriate GI Symptoms GI Symptoms None Food Allergies No Cultural/Ethnic/Lutheran Belief No cultural preferences given, however, pt does not eat beef . She states she like vegetables and banana. Usual diet at home Regular Skin Integrity/Comment: Basim 21. Skin intact. Current %PO Good (75-100%) Estimated Nutritional Goals BEE in Kcals: Using Current wt Calories/Kcals/Kg Based on CBW 53.6 kg with consideration of sepsis Kcals Calculated 2706-5870 kcals/day (30-35 kcals/kg) Protein: Using Current wt Protein g/kg: Based on CBW 53.6 kg with consideration of sepsis Protein Calculated 64-80 gm/day (1.2-1.5 gm/kg) Fluid: ml 2409-1515 ml/day (1 ml/kcal) Nutritional Problem 1. Problem Problem Increased energy and protein needs related to Etiology increased metabolic demands as evidenced by Signs/Symptoms: diagnosis sepsis and possible pneumonia (per ER report). Malnutrition Alert Is there a minimum of two criteria No selected? Query Text:Check all the applicable criteria. A minimum of two criteria are recommended for diagnosis of either severe or non-severe malnutrition. Malnutrition Related to Morbid Obesity Malnutrition related to morbid obesity No Intervention/Recommendation Comments 1. Continue with current diet. Current diet and PO intake is adequate to meet estimated nutritional needs. [place] food preferences. Expected Outcomes/Goals Expected Outcomes/Goals Have pt meet at least 75% of estimated nutritional needs. Physician Parameters for PEM Normal Weight % 90% - 110% (Normal) Body Mass Index (BMI) 19 - 24 (Normal) Serum Albumin (g/dl) 3.1 - 3.4 (Mild) 08/21/16 12:02 Dietitian Notes by Rupa Barnhart Nutrition Note Initial Nutrition Assessment completed by Rupa Barnhart on 08/21/16. Please refer to nutrition assessment under Patient Care tab of EMR. Nutrition Recommendations: 1. Continue with current diet. Current diet and PO intake is adequate to meet estimated nutritional needs. [place] food preferences. F/U in 3-5 days as Moderate risk, 38-3. Initialized on 08/21/16 12:02 - END OF NOTE
[2016-08-22 12:45] LABS: BE(B) 0.5 mmol/L (-3.0-3.0); HCO3 24.6 mmol/L (20.0-26.0); pH 7.43 (7.35-7.45)
[2016-08-22 12:46] LABS: ABG SOURCE art; CRITICAL VALUES REPORTED BY SH; FIO2 21
--- NOTE | 2016-08-22 16:10 | Diagnostic Imaging Report ---
CT scan of the chest without intravenous contrast HISTORY: Mass. Total DLP equals 174 CTDI equals 4.9 Axial sections were obtained from a level above the clavicles down to level below the diaphragm. The overall heart size is normal. No abnormal mediastinal masses. Evaluation the hilar structures is limited due to the absence of intravenous contrast. No definite abnormal masses. Hazy infiltrate noted in the right lower lobe with somewhat more focal consolidation and/or atelectasis seen posteriorly within the lower lobes. Pleural thickening also noted in the right left lower hemithoracic areas. Minimal faint focal infiltrate seen in the lingular region and left lung. The overall appearance suggests a possible chronic etiology. Superimposed pneumonia cannot be excluded. Clinical correlation is needed. Limited sections below the diaphragm demonstrate surgical clips in the [place] hepatis region consistent with prior cholecystectomy. Prominent vasculature noted in the splenic hilar region. Significance should be correlated clinically. IMPRESSION: 1. Mild hazy infiltrate within the right lower lobe with somewhat more focal consolidation and/or atelectasis posteriorly within the lower lobes bilaterally. Associated pleural thickening. The appearance suggests a chronic etiology. However, pneumonia cannot be excluded. Clinical correlation is needed.
[2016-08-22] MEDS ORDERED: IOHEXOL 300MG/ML 100 ML VIAL ONE (19:20)
[2016-08-22] MEDS ORDERED: IOHEXOL 350mg/mL 100mL Bottle IVP ONE (19:58)
[2016-08-23] MEDS: methylPREDNISolone SS 40 mg Vial IVP SCH ×2 (05:04→20:40)
[2016-08-23] MEDS: Sodium Chloride 0.45% 1,000 ML IV SCH (05:04)
[2016-08-23 05:10] LABS: HEP B CORE IGM Negative (Negative); HEP C ANTIBODY <0.1 s/co ratio (0.0-0.9)
[2016-08-23 06:13] LABS: FOLIC ACID 9.9 ng/mL (>3.0)
[2016-08-23 06:40] LABS: ANION GAP 9.5 (7.0-16.0); BUN - UREA NITROGEN 13 mg/dL (7-25); BUN/CREATININE RATIO 21.7; CALCIUM SERUM 8.8 mg/dL (8.6-10.3); CARBON DIOXIDE 25.3 mEq/L (21.0-31.0); CHLORIDE 108 mEq/L (98-107); CREATININE - SERUM 0.6 mg/dL (0.6-1.2); GLUCOSE 123 mg/dL (70-105); POTASSIUM SERUM 3.8 mEq/L (3.5-5.1); SODIUM SERUM 139 mEq/L (136-145)
[2016-08-23 06:42] LABS: HEMATOCRIT 34.6 % (35.0-45.0); MEAN CELL VOLUME 92.5 fl (81-100); MEAN CORPUSCULAR HGB CONC 34.7 pg (28.0-36.0); MEAN PLATELET VOLUME 8.2 fl; RED BLOOD COUNT 3.75 Mil/cmm (3.80-5.20); RED CELL DISTRIBUTION WIDTH 12.7 % (11.5-20.0)
[2016-08-23 06:53] LABS: PLATELET COUNT 270 Th/cmm (150-400); WHITE BLOOD COUNT 16.9 Th/cmm (4.8-10.8)
[2016-08-23] MEDS: Ipratropium Neb 0.5 mg/2.5 mL UD HHN SCH ×4 (08:33→20:06)
[2016-08-23] MEDS: Albuterol Nebulizer 2.5mg/3mL IH SCH ×4 (08:33→20:07)
--- NOTE | 2016-08-23 09:06 | Diagnostic Imaging Report ---
Portable chest x-ray History: Cough Allowing for portable technique the heart size is normal. Atherosclerotic calcification seen in the aorta. No focal pulmonary parenchymal processes. No hilar or mediastinal abnormalities. Impression: No acute abnormalities.
[2016-08-23 09:12] LABS: BAND NEUTROPHILE 6 % (0-10); NEUTROPHILS 84 % (40-80); PLATELET ESTIMATE ADEQUATE (NORMAL); PLATELET MORPHOLOGY NORMAL (NORMAL); TOTAL CELLS COUNTED 100
--- NOTE | 2016-08-23 11:36 | Internal Medicine Prog Note ---
Internal Medicine Subjective - Subjective Service Date: 08/23/16 (awake, still feels a bit weak, noted with productive cough, afebrile) Patient seen and examined:: with staff Internal Medicine Objective - Results Result Diagrams: 08/23/16 06:00 08/23/16 06:00 Recent Labs: Laboratory Last Values WBC 16.9 Th/cmm (4.8-10.8) H D 08/23/16 06:00 RBC 3.75 Mil/cmm (3.80-5.20) L 08/23/16 06:00 Hgb 12.0 gm/dL (11.7-16.1) 08/23/16 06:00 Hct 34.6 % (35.0-45.0) L 08/23/16 06:00 MCV 92.5 fl (81-100) 08/23/16 06:00 MCH 32.0 pg (27.0-31.0) H 08/23/16 06:00 MCHC Differential 34.7 pg (28.0-36.0) 08/23/16 06:00 RDW 12.7 % (11.5-20.0) 08/23/16 06:00 Plt Count 270 Th/cmm (150-400) D 08/23/16 06:00 MPV 8.2 fl 08/23/16 06:00 Neutrophils % 83.0 % (40.0-80.0) H 08/21/16 07:27 Band Neutrophils % 6 % (0-10) 08/23/16 06:00 Lymphocytes % 15.0 % (20.0-50.0) L 08/21/16 07:27 Monocytes % 1.6 % (2.0-10.0) L 08/21/16 07:27 Eosinophils % 0.2 % (0.0-5.0) 08/21/16 07:27 Basophils % 0.2 % (0.0-2.0) 08/21/16 07:27 Neutrophils (Manual) 84 % (40-80) H 08/23/16 06:00 Lymphocytes 8 % (20-50) L 08/23/16 06:00 Monocytes 2 % (2-10) 08/23/16 06:00 Nucleated RBCs 1.0 % (0-0) H 08/23/16 06:00 Platelet Estimate ADEQUATE (NORMAL) 08/23/16 06:00 Platelet Morphology NORMAL (NORMAL) 08/23/16 06:00 RBC Morph Micro Appear NORMAL (NORMAL) 08/23/16 06:00 Specimen Source art 08/22/16 12:26 Sample Site RB 08/22/16 12:26 pH 7.43 (7.35-7.45) 08/22/16 12:26 pCO2 37.0 mmHg (35.0-45.0) 08/22/16 12:26 pO2 56.0 mmHg (80.0-100.0) L 08/22/16 12:26 HCO3 24.6 mmol/L (20.0-26.0) 08/22/16 12:26 Base Excess 0.5 mmol/L (-3.0-3.0) 08/22/16 12:26 O2 Saturation 90.0 % (92.0-100.0) L 08/22/16 12:26 Mike Test NA 08/22/16 12:26 Vent Rate NA 08/22/16 12:26 Inspired O2 21 08/22/16 12:26 Tidal Volume NA 08/22/16 12:26 PEEP NA 08/22/16 12:26 Pressure (ins/psv/peep) NA 08/22/16 12:26 Critical Value SH 08/22/16 12:26 Sodium 139 mEq/L (136-145) 08/23/16 06:00 Potassium 3.8 mEq/L (3.5-5.1) 08/23/16 06:00 Chloride 108 mEq/L (98-107) H 08/23/16 06:00 Carbon Dioxide 25.3 mEq/L (21.0-31.0) 08/23/16 06:00 Anion Gap 9.5 (7.0-16.0) 08/23/16 06:00 BUN 13 mg/dL (7-25) 08/23/16 06:00 Creatinine 0.6 mg/dL (0.6-1.2) 08/23/16 06:00 Est GFR ( Amer) TNP 08/23/16 06:00 Est GFR (Non-Af Amer) TNP 08/23/16 06:00 BUN/Creatinine Ratio 21.7 08/23/16 06:00 Glucose 123 mg/dL (70-105) H 08/23/16 06:00 Hemoglobin A1c % 5.6 % (4.0-6.0) 08/21/16 07:27 Whole Bld Lactic Acid 1.33 mmol/L (0.60-1.99) 08/20/16 10:53 Calcium 8.8 mg/dL (8.6-10.3) 08/23/16 06:00 Magnesium 2.0 mg/dL (1.9-2.7) 08/21/16 07:27 Total Bilirubin 0.9 mg/dL (0.3-1.0) 08/21/16 07:27 AST 54 U/L (13-39) H 08/21/16 07:27 ALT 80 U/L (7-52) H 08/21/16 07:27 Alkaline Phosphatase 93 U/L (34-104) 08/21/16 07:27 Troponin I 0.02 ng/mL (0.01-0.05) 08/20/16 10:09 B-Natriuretic Peptide 207.0 pg/mL (5.0-100.0) H 08/20/16 10:09 Total Protein 6.6 gm/dL (6.0-8.3) 08/21/16 07:27 Albumin 3.3 gm/dL (3.7-5.3) L 08/21/16 07:27 Globulin 3.3 gm/dL 08/21/16 07:27 Albumin/Globulin Ratio 1.0 (1.0-1.8) 08/21/16 07:27 Vitamin B12 641 pg/mL (211-946) 08/21/16 07:27 Folic Acid 9.9 ng/mL (>3.0) 08/21/16 07:27 TSH 0.52 uIU/ml (0.34-5.60) 08/21/16 07:27 Urine Source CLEAN C 08/20/16 16:00 Urine Color YELLOW 08/20/16 16:00 Urine Clarity SLIGHT HAZY (CLEAR) 08/20/16 16:00 Urine pH 7.0 08/20/16 16:00 Ur Specific [place] 1.015 (1.005-1.030) 08/20/16 16:00 Urine Protein TRACE mg/dL (NEGATIVE) 08/20/16 16:00 Urine Glucose (UA) NEGATIVE mg/dL (NEGATIVE) 08/20/16 16:00 Urine Ketones 40 mg/dL (NEGATIVE) H 08/20/16 16:00 Urine Blood NEGATIVE (NEGATIVE) 08/20/16 16:00 Urine Nitrate NEGATIVE (NEGATIVE) 08/20/16 16:00 Urine Bilirubin SMALL (NEGATIVE) H 08/20/16 16:00 Urine Urobilinogen 2.0 E.U./dL (0.2 - 1.0) 08/20/16 16:00 Ur Leukocyte Esterase TRACE (NEGATIVE) H 08/20/16 16:00 Urine RBC NONE SEEN /hpf (0-5) 08/20/16 16:00 Urine WBC 0-2 /hpf (0-5) 08/20/16 16:00 Ur Epithelial Cells FEW /lpf (FEW) 08/20/16 16:00 Urine Bacteria FEW /hpf (NONE SEEN) 08/20/16 16:00 Hepatitis A IgM Ab Negative (Negative) 08/21/16 07:27 Hep Bs Antigen Negative (Negative) 08/21/16 07:27 Hep B Core IgM Ab Negative (Negative) 08/21/16 07:27 Hepatitis C Antibody <0.1 s/co ratio (0.0-0.9) 08/21/16 07:27 - Physical Exam Vitals and I&O: Vital Signs Temp 98.1 F 08/23/16 08:00 Pulse 71 08/23/16 08:00 Resp 18 08/23/16 08:00 BP 112/70 08/23/16 08:00 Pulse Ox 95 08/23/16 08:00 Intake & Output 08/22/16 08/23/16 08/23/16 18:59 06:59 18:59 Intake Total 2200 925.333 Balance 2200 925.333 Intake: Intake, IV Amount 1300 825.333 Cefepime 1 gm In Dextrose 50 5% 50 ml @ 100 mls/hr IV Q12H [facility] Rx#:[id number] Sodium Chloride 0.45% 1, 1000 825.333 000 ml @ 80 mls/hr IV . [id number] [facility] Rx#:[id number] Vancomycin HCl 1 gm In 250 Sodium Chloride 0.9% 250 ml @ 166.667 mls/hr IV Q24H [facility] Rx#:[id number] Oral 900 100 Other: # Voids 3 4 # Bowel Movements 0 Active Medications: Current Medications Acetaminophen (Tylenol) 650 mg PO Q4HR PRN PRN Reason: Pain or Fever >101 Stop: 10/19/16 15:13 Last Admin: 08/21/16 12:57 Dose: 650 mg Al Hydrox/Mg Hydrox/Simethicone (Maalox) 30 ml PO Q6HR PRN PRN Reason: Constipation Stop: 10/19/16 15:13 Albuterol Sulfate (Albuterol 2.5mg/3ml Neb Ud) 2.5 mg IH QID [facility] Stop: 10/19/16 16:59 Last Admin: 08/23/16 08:33 Dose: 2.5 mg Guaifenesin (Robitussin) 200 mg PO Q4HR PRN PRN Reason: Cough or Congestion Stop: 10/19/16 15:13 Last Admin: 08/22/16 09:09 Dose: 200 mg Guaifenesin (Mucinex) 600 mg PO Q12HR [facility] Stop: 10/20/16 20:59 Last Admin: 08/23/16 09:28 Dose: 600 mg Cefepime HCl 1 gm/ Dextrose 50 mls @ 100 mls/hr IV Q12H [facility] Stop: 10/19/16 15:14 Last Admin: 08/23/16 02:50 Dose: 100 mls/hr Sodium Chloride (Nacl 0.45%) 1,000 mls @ 80 mls/hr IV .[id number] [facility] Stop: 10/20/16 14:44 Last Admin: 08/23/16 05:04 Dose: 80 mls/hr Vancomycin HCl 1 gm/ Sodium (Chloride) 250 mls @ 166.667 mls/hr IV Q24H [facility] Stop: 10/21/16 12:29 Last Infusion: 08/22/16 14:25 Dose: Infused Ipratropium [place] (Atrovent Neb 0.5mg/2.5ml) 0.5 mg HHN QIDRT [facility] Stop: 10/19/16 16:59 Last Admin: 08/23/16 08:33 Dose: 0.5 mg Methylprednisolone Sodium Succinate (Solu-Medrol) 40 mg IVP Q8HR [facility] Stop: 10/20/16 14:29 Last Admin: 08/23/16 05:04 Dose: 40 mg Miscellaneous (Vancomycin Iv Per Pharmacy) 1 ea MC PRN [facility] Stop: 10/21/16 12:29 Ondansetron HCl (Zofran) 4 mg IV Q8H PRN PRN Reason: Nausea / Vomiting Stop: 10/19/16 15:13 Tramadol HCl (Ultram) 50 mg PO Q6HR PRN PRN Reason: Pain (Moderate) Stop: 10/20/16 14:30 Last Admin: 08/21/16 23:15 Dose: 50 mg Zolpidem Tartrate (Ambien) 10 mg PO HS PRN PRN Reason: Insomnia Stop: 10/19/16 15:12 Last Admin: 08/23/16 02:54 Dose: 10 mg General: weak, alert HEENT: NC/AT, PERRLA Neck: Supple Lungs: ronchi Cardiovascular: RRR, Normal S1, Normal S2, without murmur Abdomen: soft non-tender, non-distended Extremities: clear - Procedures Procedures: Procedures Procedure Code Date D & C NEC 69.09 12/05/95 DILATION AND CURETTAGE 05542 12/05/95 DX BRONCHOSCOPE/LAVAGE 98934 03/22/10 ENDOSCOPIC BRONCHIAL BX 33.24 03/22/10 IRIDECTOMY NEC 12.14 03/25/09 LAPAROSCOPIC CHOLECYSTECTOMY 51.23 02/20/12 LAPAROSCOPIC CHOLECYSTECTOMY 48159 02/20/12 REVISION OF IRIS 77370 03/25/09 Internal Medicine Assmt/Plan - Assessment Assessment: fever sepsis acute bronchitis and copd exac hyperglycemia leukocytosis hypokalemia - Plan Plan: awaiting for sputum cx ivabx monitor for fever f/u labs bronchodilators cpm Nutritional Asmnt/Malnutr-PDOC - Dietary Evaluation Malnutrition Findings (Please click <Entered> for more info): Nutritional Asmnt/Malnutrition Start: 08/21/16 11: 55 Text: Status: Complete Freq: Document 08/21/16 11:55 [facility] (Rec: 08/21/16 12:02 [facility] [id number]) Nutritional Asmnt/Malnutrition Patient General Information Nutritional Screening High Risk Screening Diagnosis Sepsis without septic shock, probable pneumonia Pertinent Medical Hx/Surgical Hx None Subjective Information Pt is a 76-year-old female admitted with chief complaint of shortness of breath for 2 days. Pt was awake and alert during time of visit. Pt is a good historian. RD offered diet education but pt declined . Pt appears well nourished with no signs of muscle or fat depletion. Teeth intact. Pt reports UBW 125# one year ago and recently weighed 118# at clinic. Pt admits she does not eat breakfast regularly at home, except for coffee, but she would like to change that lifestyle. Current Diet Order/ Nutrition Support Low sodium Patient / S.O Can Pertinent Medications Cefepime, Solu-Medrol, Zofran, D5-0.45 ns with 20 Meq KCl Pertinent Labs (08/21) Glucose 162H (likely related to steroids), AST 54H and ALT 80H (improved) Nutritional Hx/Data Height 4 ft 11 in Height (Calculated Centimeters) 149.9 Current Weight (lbs) 118 lb Weight (Calculated Kilograms) 53.5 Weight (Calculated Grams) 09870.9 Usual body Weight (lbs) 125 Recent Weight Change Yes Weight Status Approriate GI Symptoms GI Symptoms None Food Allergies No Cultural/Ethnic/Orthodox Belief No cultural preferences given, however, pt does not eat beef . She states she like vegetables and banana. Usual diet at home Regular Skin Integrity/Comment: Basim 21. Skin intact. Current %PO Good (75-100%) Estimated Nutritional Goals BEE in Kcals: Using Current wt Calories/Kcals/Kg Based on CBW 53.6 kg with consideration of sepsis Kcals Calculated 4142-5376 kcals/day (30-35 kcals/kg) Protein: Using Current wt Protein g/kg: Based on CBW 53.6 kg with consideration of sepsis Protein Calculated 64-80 gm/day (1.2-1.5 gm/kg) Fluid: ml 3608-2198 ml/day (1 ml/kcal) Nutritional Problem 1. Problem Problem Increased energy and protein needs related to Etiology increased metabolic demands as evidenced by Signs/Symptoms: diagnosis sepsis and possible pneumonia (per ER report). Malnutrition Alert Is there a minimum of two criteria No selected? Query Text:Check all the applicable criteria. A minimum of two criteria are recommended for diagnosis of either severe or non-severe malnutrition. Malnutrition Related to Morbid Obesity Malnutrition related to morbid obesity No Intervention/Recommendation Comments 1. Continue with current diet. Current diet and PO intake is adequate to meet estimated nutritional needs. [place] food preferences. Expected Outcomes/Goals Expected Outcomes/Goals Have pt meet at least 75% of estimated nutritional needs. Physician Parameters for PEM Normal Weight % 90% - 110% (Normal) Body Mass Index (BMI) 19 - 24 (Normal) Serum Albumin (g/dl) 3.1 - 3.4 (Mild) 08/21/16 12:02 Dietitian Notes by Rupa Barnhart Nutrition Note Initial Nutrition Assessment completed by Rupa Barnhart on 08/21/16. Please refer to nutrition assessment under Patient Care tab of EMR. Nutrition Recommendations: 1. Continue with current diet. Current diet and PO intake is adequate to meet estimated nutritional needs. [place] food preferences. F/U in 3-5 days as Moderate risk, 08/24-08/26. Initialized on 08/21/16 12:02 - END OF NOTE
[2016-08-23] MEDS ORDERED: methylPREDNISolone SS 40 mg Vial IVP SCH (11:45)
--- NOTE | 2016-08-23 12:41 | Diagnostic Imaging Report ---
CT Chest PE study Indication: Shortness of breath, rule out PE Comparison: CT chest on 08/22/2016, Technique: Axial images were obtained from the base of the neck to the upper abdomen, following administration of IV contrast, PE protocol. Total DLP 142, CTD I 19 Findings: There is no evidence of mediastinal lymphadenopathy. The ascending aorta measures up to 3.5 cm. Mild atherosclerosis is noted. Heart size is normal. No pericardial effusion. There is no evidence of a pulmonary embolus Mild chronic lung changes are seen with hypoventilatory and atelectatic changes and bibasal infiltrates and consolidative changes. The upper abdomen demonstrates no acute abnormalities. Degenerative changes of the spine are noted. IMPRESSION: No evidence of a pulmonary embolus. Mild atherosclerotic vascular disease. Ectatic ascending aorta measuring up to 3.5 cm. Bibasal infiltrates and small bilateral effusions.
[2016-08-23] MEDS: guaiFENesin 200 MG/10 ML UDC PO PRN (16:35)
[2016-08-24 05:59] LABS: % BASOPHILS 0.2 % (0.0-2.0); % EOSINOPHILS 0.2 % (0.0-5.0); % LYMPHOCYTES 9.2 % (20.0-50.0); % MONOCYTES 5.6 % (2.0-10.0); % NEUTROPHILS 84.8 % (40.0-80.0); HEMATOCRIT 34.6 % (35.0-45.0); HEMOGLOBIN 11.8 gm/dL (11.7-16.1); MEAN CELL VOLUME 94.1 fl (81-100); MEAN CORPUSCULAR HEMOGLOBIN 32.1 pg (27.0-31.0); MEAN CORPUSCULAR HGB CONC 34.1 pg (28.0-36.0); MEAN PLATELET VOLUME 7.4 fl; NEUTROPHILE ABSOLUTE 9.9 Th/cmm (1.8-8.0); PLATELET COUNT 255 Th/cmm (150-400); RED BLOOD COUNT 3.68 Mil/cmm (3.80-5.20); RED CELL DISTRIBUTION WIDTH 12.8 % (11.5-20.0)
[2016-08-24] MEDS: methylPREDNISolone SS 40 mg Vial IVP SCH (06:01)
[2016-08-24 06:12] LABS: WHITE BLOOD COUNT 11.7 Th/cmm (4.8-10.8)
[2016-08-24 06:14] LABS: ANION GAP 8.9 (7.0-16.0); BUN - UREA NITROGEN 11 mg/dL (7-25); BUN/CREATININE RATIO 18.3; CALCIUM SERUM 8.5 mg/dL (8.6-10.3); CARBON DIOXIDE 24.8 mEq/L (21.0-31.0); CHLORIDE 109 mEq/L (98-107); CREATININE - SERUM 0.6 mg/dL (0.6-1.2); GLUCOSE 150 mg/dL (70-105); POTASSIUM SERUM 3.7 mEq/L (3.5-5.1); SODIUM SERUM 139 mEq/L (136-145)
[2016-08-24] MEDS: Albuterol Nebulizer 2.5mg/3mL IH SCH (06:56)
[2016-08-24] MEDS: Ipratropium Neb 0.5 mg/2.5 mL UD HHN SCH ×3 (06:57→14:23)
--- NOTE | 2016-08-24 07:06 | Consultation ---
REFERRING PHYSICIAN: Dr. Sridhar Blackwood. Thank you very much, Dr. Blackwood for this consultation. HISTORY OF PRESENT ILLNESS: The patient is known to me for many years with history of asthma, previous exacerbation, has not been in the office for followup for a few years now and has stopped taking her steroid inhaler for a while as well. The patient presents with increased shortness of breath, cough, congestion and wheezing admitted for treatment and management. Continues to have significant cough mostly dry. She had a CT chest, which showed no PE. She still has some cough and congestion. PAST MEDICAL HISTORY: As above. SOCIAL HISTORY: No smoking and drinking. PHYSICAL EXAMINATION: GENERAL: Awake, alert, not in acute distress. VITAL SIGNS: Temperature 98.5, pulse 74, respiration are 20, blood pressure 136/78 and saturation is 96%. HEENT: Atraumatic and normocephalic. Pupils are reactive to light and accommodation. Ears, Nose and Throat: Normal. NECK: Supple. No JVD. CHEST: There is diffuse wheezing and rhonchi bilaterally worse with coughing. HEART: Regular rate and rhythm. ABDOMEN: Soft. EXTREMITIES: No edema. LABORATORY DATA: WBC 16.7, hemoglobin 12.20, hematocrit 34.6 and platelets 270. Sodium is 139 and potassium 3.8. BUN is 13 and creatinine 0.6. IMAGING STUDIES: Chest x-ray: No acute infiltrate. IMPRESSION: 1. This is a 76-year-old female with acute asthma exacerbation. 2. acute bronchitis. 3. Early pneumonia. PLAN: 1. IV antibiotics. 2. Nebulizer. 3. IV Solu-Medrol. Follow the patient with you. The patient was advised again to use steroid inhaler and asthma control medications on a regular basis to prevent such an attack. JOB# [id number] MERLY
--- NOTE | 2016-08-24 10:49 | Internal Medicine Prog Note ---
Internal Medicine Subjective - Subjective Service Date: 08/24/16 Patient seen and examined:: with staff Patient is:: awake Per staff patient is:: no adverse event Internal Medicine Objective - Results Result Diagrams: 08/24/16 05:40 08/24/16 05:40 Recent Labs: Laboratory Last Values WBC 11.7 Th/cmm (4.8-10.8) H D 08/24/16 05:40 RBC 3.68 Mil/cmm (3.80-5.20) L 08/24/16 05:40 Hgb 11.8 gm/dL (11.7-16.1) 08/24/16 05:40 Hct 34.6 % (35.0-45.0) L 08/24/16 05:40 MCV 94.1 fl (81-100) 08/24/16 05:40 MCH 32.1 pg (27.0-31.0) H 08/24/16 05:40 MCHC Differential 34.1 pg (28.0-36.0) 08/24/16 05:40 RDW 12.8 % (11.5-20.0) 08/24/16 05:40 Plt Count 255 Th/cmm (150-400) 08/24/16 05:40 MPV 7.4 fl 08/24/16 05:40 Neutrophils % 84.8 % (40.0-80.0) H 08/24/16 05:40 Band Neutrophils % 6 % (0-10) 08/23/16 06:00 Lymphocytes % 9.2 % (20.0-50.0) L 08/24/16 05:40 Monocytes % 5.6 % (2.0-10.0) 08/24/16 05:40 Eosinophils % 0.2 % (0.0-5.0) 08/24/16 05:40 Basophils % 0.2 % (0.0-2.0) 08/24/16 05:40 Neutrophils (Manual) 84 % (40-80) H 08/23/16 06:00 Lymphocytes 8 % (20-50) L 08/23/16 06:00 Monocytes 2 % (2-10) 08/23/16 06:00 Nucleated RBCs 1.0 % (0-0) H 08/23/16 06:00 Platelet Estimate ADEQUATE (NORMAL) 08/23/16 06:00 Platelet Morphology NORMAL (NORMAL) 08/23/16 06:00 RBC Morph Micro Appear NORMAL (NORMAL) 08/23/16 06:00 Specimen Source art 08/22/16 12:26 Sample Site RB 08/22/16 12:26 pH 7.43 (7.35-7.45) 08/22/16 12:26 pCO2 37.0 mmHg (35.0-45.0) 08/22/16 12:26 pO2 56.0 mmHg (80.0-100.0) L 08/22/16 12:26 HCO3 24.6 mmol/L (20.0-26.0) 08/22/16 12:26 Base Excess 0.5 mmol/L (-3.0-3.0) 08/22/16 12:26 O2 Saturation 90.0 % (92.0-100.0) L 08/22/16 12:26 Mike Test NA 08/22/16 12:26 Vent Rate NA 08/22/16 12:26 Inspired O2 21 08/22/16 12:26 Tidal Volume NA 08/22/16 12:26 PEEP NA 08/22/16 12:26 Pressure (ins/psv/peep) NA 08/22/16 12:26 Critical Value SH 08/22/16 12:26 Sodium 139 mEq/L (136-145) 08/24/16 05:40 Potassium 3.7 mEq/L (3.5-5.1) 08/24/16 05:40 Chloride 109 mEq/L (98-107) H 08/24/16 05:40 Carbon Dioxide 24.8 mEq/L (21.0-31.0) 08/24/16 05:40 Anion Gap 8.9 (7.0-16.0) 08/24/16 05:40 BUN 11 mg/dL (7-25) 08/24/16 05:40 Creatinine 0.6 mg/dL (0.6-1.2) 08/24/16 05:40 Est GFR ( Amer) TNP 08/24/16 05:40 Est GFR (Non-Af Amer) TNP 08/24/16 05:40 BUN/Creatinine Ratio 18.3 08/24/16 05:40 Glucose 150 mg/dL (70-105) H 08/24/16 05:40 Hemoglobin A1c % 5.6 % (4.0-6.0) 08/21/16 07:27 Whole Bld Lactic Acid 1.33 mmol/L (0.60-1.99) 08/20/16 10:53 Calcium 8.5 mg/dL (8.6-10.3) L 08/24/16 05:40 Magnesium 2.0 mg/dL (1.9-2.7) 08/24/16 05:40 Total Bilirubin 0.9 mg/dL (0.3-1.0) 08/21/16 07:27 AST 54 U/L (13-39) H 08/21/16 07:27 ALT 80 U/L (7-52) H 08/21/16 07:27 Alkaline Phosphatase 93 U/L (34-104) 08/21/16 07:27 Ammonia 69 umol/L (16-53) H 08/24/16 05:40 Troponin I 0.02 ng/mL (0.01-0.05) 08/20/16 10:09 B-Natriuretic Peptide 388.0 pg/mL (5.0-100.0) H 08/24/16 05:40 Total Protein 6.6 gm/dL (6.0-8.3) 08/21/16 07:27 Albumin 3.3 gm/dL (3.7-5.3) L 08/21/16 07:27 Globulin 3.3 gm/dL 08/21/16 07:27 Albumin/Globulin Ratio 1.0 (1.0-1.8) 08/21/16 07:27 Vitamin B12 641 pg/mL (211-946) 08/21/16 07:27 Folic Acid 9.9 ng/mL (>3.0) 08/21/16 07:27 TSH 0.52 uIU/ml (0.34-5.60) 08/21/16 07:27 Urine Source CLEAN C 08/20/16 16:00 Urine Color YELLOW 08/20/16 16:00 Urine Clarity SLIGHT HAZY (CLEAR) 08/20/16 16:00 Urine pH 7.0 08/20/16 16:00 Ur Specific [place] 1.015 (1.005-1.030) 08/20/16 16:00 Urine Protein TRACE mg/dL (NEGATIVE) 08/20/16 16:00 Urine Glucose (UA) NEGATIVE mg/dL (NEGATIVE) 08/20/16 16:00 Urine Ketones 40 mg/dL (NEGATIVE) H 08/20/16 16:00 Urine Blood NEGATIVE (NEGATIVE) 08/20/16 16:00 Urine Nitrate NEGATIVE (NEGATIVE) 08/20/16 16:00 Urine Bilirubin SMALL (NEGATIVE) H 08/20/16 16:00 Urine Urobilinogen 2.0 E.U./dL (0.2 - 1.0) 08/20/16 16:00 Ur Leukocyte Esterase TRACE (NEGATIVE) H 08/20/16 16:00 Urine RBC NONE SEEN /hpf (0-5) 08/20/16 16:00 Urine WBC 0-2 /hpf (0-5) 08/20/16 16:00 Ur Epithelial Cells FEW /lpf (FEW) 08/20/16 16:00 Urine Bacteria FEW /hpf (NONE SEEN) 08/20/16 16:00 Vancomycin Trough 9.9 ug/mL (10-20) L 08/24/16 08:00 Hepatitis A IgM Ab Negative (Negative) 08/21/16 07:27 Hep Bs Antigen Negative (Negative) 08/21/16 07:27 Hep B Core IgM Ab Negative (Negative) 08/21/16 07:27 Hepatitis C Antibody <0.1 s/co ratio (0.0-0.9) 08/21/16 07:27 - Physical Exam Vitals and I&O: Vital Signs Temp 99.0 F 08/24/16 04:00 Pulse 68 08/24/16 06:57 Resp 20 08/24/16 06:57 BP 135/72 08/24/16 04:00 Pulse Ox 92 08/24/16 06:57 Intake & Output 08/23/16 08/24/16 08/24/16 18:59 06:59 18:59 Intake Total 450 300 Balance 450 300 Intake: Intake, IV Amount 50 300 Cefepime 1 gm In Dextrose 50 50 5% 50 ml @ 100 mls/hr IV Q12H [facility] Rx#:[id number] Vancomycin HCl 1 gm In 250 Sodium Chloride 0.9% 250 ml @ 165 mls/hr IV Q12H [facility] Rx#:[id number] Oral 400 Other: # Voids 4 # Bowel Movements 1 Active Medications: Current Medications Acetaminophen (Tylenol) 650 mg PO Q4HR PRN PRN Reason: Pain or Fever >101 Stop: 10/19/16 15:13 Last Admin: 08/21/16 12:57 Dose: 650 mg Al Hydrox/Mg Hydrox/Simethicone (Maalox) 30 ml PO Q6HR PRN PRN Reason: Constipation Stop: 10/19/16 15:13 Albuterol Sulfate (Albuterol 2.5mg/3ml Neb Ud) 2.5 mg N QIDRT [facility] Stop: 10/23/16 10:59 Guaifenesin (Robitussin) 200 mg PO Q4HR PRN PRN Reason: Cough or Congestion Stop: 10/19/16 15:13 Last Admin: 08/23/16 16:35 Dose: 200 mg Guaifenesin (Mucinex) 1,200 mg PO Q12HR [facility] Stop: 10/22/16 20:59 Last Admin: 08/24/16 09:09 Dose: 1,200 mg Cefepime HCl 1 gm/ Dextrose 50 mls @ 100 mls/hr IV Q12H [facility] Stop: 10/19/16 15:14 Last Infusion: 08/24/16 05:15 Dose: Infused Sodium Chloride (Nacl 0.45%) 1,000 mls @ 80 mls/hr IV .[id number] [facility] Stop: 10/20/16 14:44 Last Admin: 08/23/16 05:04 Dose: 80 mls/hr Vancomycin HCl 1 gm/ Sodium (Chloride) 250 mls @ 165 mls/hr IV Q12H [facility] Stop: 08/24/16 12:00 Last Admin: 08/24/16 09:08 Dose: 165 mls/hr Vancomycin HCl 1.25 gm/ Sodium (Chloride) 250 mls @ 165 mls/hr IV Q12H [facility] Stop: 10/23/16 20:59 Ipratropium [place] (Atrovent Neb 0.5mg/2.5ml) 0.5 mg N QIDRT [facility] Stop: 10/19/16 16:59 Last Admin: 08/24/16 06:57 Dose: 0.5 mg Methylprednisolone Sodium Succinate (Solu-Medrol) 80 mg IVP Q8HR [facility] Stop: 10/23/16 12:59 Miscellaneous (Vancomycin Iv Per Pharmacy) 1 ea MC PRN [facility] Stop: 10/21/16 12:29 Ondansetron HCl (Zofran) 4 mg IV Q8H PRN PRN Reason: Nausea / Vomiting Stop: 10/19/16 15:13 Tramadol HCl (Ultram) 50 mg PO Q6HR PRN PRN Reason: Pain (Moderate) Stop: 10/20/16 14:30 Last Admin: 08/21/16 23:15 Dose: 50 mg Zolpidem Tartrate (Ambien) 10 mg PO HS PRN PRN Reason: Insomnia Stop: 10/19/16 15:12 Last Admin: 08/24/16 01:26 Dose: 10 mg General: alert HEENT: NC/AT, PERRLA Neck: Supple Lungs: CTAB Cardiovascular: RRR, Normal S1, Normal S2, without murmur Abdomen: soft non-tender, non-distended, positive bowel sound Neurological: no change - Procedures Procedures: Procedures Procedure Code Date D & C NEC 69.09 12/05/95 DILATION AND CURETTAGE 11328 12/05/95 DX BRONCHOSCOPE/LAVAGE 40643 03/22/10 ENDOSCOPIC BRONCHIAL BX 33.24 03/22/10 IRIDECTOMY NEC 12.14 03/25/09 LAPAROSCOPIC CHOLECYSTECTOMY 51.23 02/20/12 LAPAROSCOPIC CHOLECYSTECTOMY 10502 02/20/12 REVISION OF IRIS 39022 03/25/09 Internal Medicine Assmt/Plan - Assessment Assessment: fever sepsis acute bronchitis and copd exac hyperglycemia leukocytosis hypokalemia - Plan Plan: ivabx monitor for fever f/u labs bronchodilators cpm Nutritional Asmnt/Malnutr-PDOC - Dietary Evaluation Malnutrition Findings (Please click <Entered> for more info): Nutritional Asmnt/Malnutrition Start: 08/21/16 11: 55 Text: Status: Complete Freq: Document 08/21/16 11:55 [facility] (Rec: 08/21/16 12:02 [facility] [id number]) Nutritional Asmnt/Malnutrition Patient General Information Nutritional Screening High Risk Screening Diagnosis Sepsis without septic shock, probable pneumonia Pertinent Medical Hx/Surgical Hx None Subjective Information Pt is a 76-year-old female admitted with chief complaint of shortness of breath for 2 days. Pt was awake and alert during time of visit. Pt is a good historian. RD offered diet education but pt declined . Pt appears well nourished with no signs of muscle or fat depletion. Teeth intact. Pt reports UBW 125# one year ago and recently weighed 118# at clinic. Pt admits she does not eat breakfast regularly at home, except for coffee, but she would like to change that lifestyle. Current Diet Order/ Nutrition Support Low sodium Patient / S.O Can Pertinent Medications Cefepime, Solu-Medrol, Zofran, D5-0.45 ns with 20 Meq KCl Pertinent Labs (08/21) Glucose 162H (likely related to steroids), AST 54H and ALT 80H (improved) Nutritional Hx/Data Height 4 ft 11 in Height (Calculated Centimeters) 149.9 Current Weight (lbs) 118 lb Weight (Calculated Kilograms) 53.5 Weight (Calculated Grams) 91577.9 Usual body Weight (lbs) 125 Recent Weight Change Yes Weight Status Approriate GI Symptoms GI Symptoms None Food Allergies No Cultural/Ethnic/Nondenominational Belief No cultural preferences given, however, pt does not eat beef . She states she like vegetables and banana. Usual diet at home Regular Skin Integrity/Comment: Basim 21. Skin intact. Current %PO Good (75-100%) Estimated Nutritional Goals BEE in Kcals: Using Current wt Calories/Kcals/Kg Based on CBW 53.6 kg with consideration of sepsis Kcals Calculated 5589-9307 kcals/day (30-35 kcals/kg) Protein: Using Current wt Protein g/kg: Based on CBW 53.6 kg with consideration of sepsis Protein Calculated 64-80 gm/day (1.2-1.5 gm/kg) Fluid: ml 3469-4866 ml/day (1 ml/kcal) Nutritional Problem 1. Problem Problem Increased energy and protein needs related to Etiology increased metabolic demands as evidenced by Signs/Symptoms: diagnosis sepsis and possible pneumonia (per ER report). Malnutrition Alert Is there a minimum of two criteria No selected? Query Text:Check all the applicable criteria. A minimum of two criteria are recommended for diagnosis of either severe or non-severe malnutrition. Malnutrition Related to Morbid Obesity Malnutrition related to morbid obesity No Intervention/Recommendation Comments 1. Continue with current diet. Current diet and PO intake is adequate to meet estimated nutritional needs. [place] food preferences. Expected Outcomes/Goals Expected Outcomes/Goals Have pt meet at least 75% of estimated nutritional needs. Physician Parameters for PEM Normal Weight % 90% - 110% (Normal) Body Mass Index (BMI) 19 - 24 (Normal) Serum Albumin (g/dl) 3.1 - 3.4 (Mild) 08/21/16 12:02 Dietitian Notes by Rupa Barnhart Nutrition Note Initial Nutrition Assessment completed by Rupa Barnhart on 08/21/16. Please refer to nutrition assessment under Patient Care tab of EMR. Nutrition Recommendations: 1. Continue with current diet. Current diet and PO intake is adequate to meet estimated nutritional needs. [place] food preferences. F/U in 3-5 days as Moderate risk, 08/24-08/26. Initialized on 08/21/16 12:02 - END OF NOTE
[2016-08-24] MEDS: Albuterol Nebulizer 2.5mg/3mL HHN SCH ×2 (10:57→14:22)
[2016-08-25] MEDS: Ipratropium Neb 0.5 mg/2.5 mL UD HHN SCH ×4 (06:57→19:32)
[2016-08-25] MEDS: Albuterol Nebulizer 2.5mg/3mL HHN SCH ×4 (06:57→19:32)
[2016-08-25 07:02] LABS: ANION GAP 9.4 (7.0-16.0); BUN - UREA NITROGEN 15 mg/dL (7-25); CALCIUM SERUM 8.4 mg/dL (8.6-10.3); CHLORIDE 107 mEq/L (98-107); CREATININE - SERUM 0.6 mg/dL (0.6-1.2); GLUCOSE 133 mg/dL (70-105); POTASSIUM SERUM 3.4 mEq/L (3.5-5.1); SODIUM SERUM 139 mEq/L (136-145)
[2016-08-25 07:07] LABS: % BASOPHILS 0.1 % (0.0-2.0); % EOSINOPHILS 0.2 % (0.0-5.0); % LYMPHOCYTES 11.1 % (20.0-50.0); % NEUTROPHILS 82.6 % (40.0-80.0); HEMATOCRIT 34.8 % (35.0-45.0); MEAN CELL VOLUME 93.7 fl (81-100); MEAN CORPUSCULAR HEMOGLOBIN 32.4 pg (27.0-31.0); MEAN CORPUSCULAR HGB CONC 34.6 pg (28.0-36.0); MEAN PLATELET VOLUME 7.9 fl; NEUTROPHILE ABSOLUTE 12.6 Th/cmm (1.8-8.0); PLATELET COUNT 283 Th/cmm (150-400); RED BLOOD COUNT 3.71 Mil/cmm (3.80-5.20); RED CELL DISTRIBUTION WIDTH 12.8 % (11.5-20.0)
[2016-08-25 07:56] LABS: WHITE BLOOD COUNT 15.2 Th/cmm (4.8-10.8)
--- NOTE | 2016-08-25 11:23 | Internal Medicine Prog Note ---
Internal Medicine Subjective - Subjective Service Date: 08/25/16 Patient seen and examined:: with staff Patient is:: awake, non-interactive Per staff patient is:: no adverse event Internal Medicine Objective - Results Result Diagrams: 08/25/16 05:55 08/25/16 05:55 Recent Labs: Laboratory Last Values WBC 15.2 Th/cmm (4.8-10.8) H D 08/25/16 05:55 RBC 3.71 Mil/cmm (3.80-5.20) L 08/25/16 05:55 Hgb 12.0 gm/dL (11.7-16.1) 08/25/16 05:55 Hct 34.8 % (35.0-45.0) L 08/25/16 05:55 MCV 93.7 fl (81-100) 08/25/16 05:55 MCH 32.4 pg (27.0-31.0) H 08/25/16 05:55 MCHC Differential 34.6 pg (28.0-36.0) 08/25/16 05:55 RDW 12.8 % (11.5-20.0) 08/25/16 05:55 Plt Count 283 Th/cmm (150-400) 08/25/16 05:55 MPV 7.9 fl 08/25/16 05:55 Neutrophils % 82.6 % (40.0-80.0) H 08/25/16 05:55 Band Neutrophils % 6 % (0-10) 08/23/16 06:00 Lymphocytes % 11.1 % (20.0-50.0) L 08/25/16 05:55 Monocytes % 6.0 % (2.0-10.0) 08/25/16 05:55 Eosinophils % 0.2 % (0.0-5.0) 08/25/16 05:55 Basophils % 0.1 % (0.0-2.0) 08/25/16 05:55 Neutrophils (Manual) 84 % (40-80) H 08/23/16 06:00 Lymphocytes 8 % (20-50) L 08/23/16 06:00 Monocytes 2 % (2-10) 08/23/16 06:00 Nucleated RBCs 1.0 % (0-0) H 08/23/16 06:00 Platelet Estimate ADEQUATE (NORMAL) 08/23/16 06:00 Platelet Morphology NORMAL (NORMAL) 08/23/16 06:00 RBC Morph Micro Appear NORMAL (NORMAL) 08/23/16 06:00 Specimen Source art 08/22/16 12:26 Sample Site RB 08/22/16 12:26 pH 7.43 (7.35-7.45) 08/22/16 12:26 pCO2 37.0 mmHg (35.0-45.0) 08/22/16 12:26 pO2 56.0 mmHg (80.0-100.0) L 08/22/16 12:26 HCO3 24.6 mmol/L (20.0-26.0) 08/22/16 12:26 Base Excess 0.5 mmol/L (-3.0-3.0) 08/22/16 12:26 O2 Saturation 90.0 % (92.0-100.0) L 08/22/16 12:26 Mike Test NA 08/22/16 12:26 Vent Rate NA 08/22/16 12:26 Inspired O2 21 08/22/16 12:26 Tidal Volume NA 08/22/16 12:26 PEEP NA 08/22/16 12:26 Pressure (ins/psv/peep) NA 08/22/16 12:26 Critical Value SH 08/22/16 12:26 Sodium 139 mEq/L (136-145) 08/25/16 05:55 Potassium 3.4 mEq/L (3.5-5.1) L 08/25/16 05:55 Chloride 107 mEq/L (98-107) 08/25/16 05:55 Carbon Dioxide 26.0 mEq/L (21.0-31.0) 08/25/16 05:55 Anion Gap 9.4 (7.0-16.0) 08/25/16 05:55 BUN 15 mg/dL (7-25) 08/25/16 05:55 Creatinine 0.6 mg/dL (0.6-1.2) 08/25/16 05:55 Est GFR ( Amer) TNP 08/25/16 05:55 Est GFR (Non-Af Amer) TNP 08/25/16 05:55 BUN/Creatinine Ratio 25.0 08/25/16 05:55 Glucose 133 mg/dL (70-105) H 08/25/16 05:55 Hemoglobin A1c % 5.6 % (4.0-6.0) 08/21/16 07:27 Whole Bld Lactic Acid 1.33 mmol/L (0.60-1.99) 08/20/16 10:53 Calcium 8.4 mg/dL (8.6-10.3) L 08/25/16 05:55 Magnesium 2.0 mg/dL (1.9-2.7) 08/25/16 05:55 Total Bilirubin 0.9 mg/dL (0.3-1.0) 08/21/16 07:27 AST 54 U/L (13-39) H 08/21/16 07:27 ALT 80 U/L (7-52) H 08/21/16 07:27 Alkaline Phosphatase 93 U/L (34-104) 08/21/16 07:27 Ammonia 69 umol/L (16-53) H 08/24/16 05:40 Troponin I 0.02 ng/mL (0.01-0.05) 08/20/16 10:09 B-Natriuretic Peptide 388.0 pg/mL (5.0-100.0) H 08/24/16 05:40 Total Protein 6.6 gm/dL (6.0-8.3) 08/21/16 07:27 Albumin 3.3 gm/dL (3.7-5.3) L 08/21/16 07:27 Globulin 3.3 gm/dL 08/21/16 07:27 Albumin/Globulin Ratio 1.0 (1.0-1.8) 08/21/16 07:27 Vitamin B12 641 pg/mL (211-946) 08/21/16 07:27 Folic Acid 9.9 ng/mL (>3.0) 08/21/16 07:27 TSH 0.52 uIU/ml (0.34-5.60) 08/21/16 07:27 Urine Source CLEAN C 08/20/16 16:00 Urine Color YELLOW 08/20/16 16:00 Urine Clarity SLIGHT HAZY (CLEAR) 08/20/16 16:00 Urine pH 7.0 08/20/16 16:00 Ur Specific [place] 1.015 (1.005-1.030) 08/20/16 16:00 Urine Protein TRACE mg/dL (NEGATIVE) 08/20/16 16:00 Urine Glucose (UA) NEGATIVE mg/dL (NEGATIVE) 08/20/16 16:00 Urine Ketones 40 mg/dL (NEGATIVE) H 08/20/16 16:00 Urine Blood NEGATIVE (NEGATIVE) 08/20/16 16:00 Urine Nitrate NEGATIVE (NEGATIVE) 08/20/16 16:00 Urine Bilirubin SMALL (NEGATIVE) H 08/20/16 16:00 Urine Urobilinogen 2.0 E.U./dL (0.2 - 1.0) 08/20/16 16:00 Ur Leukocyte Esterase TRACE (NEGATIVE) H 08/20/16 16:00 Urine RBC NONE SEEN /hpf (0-5) 08/20/16 16:00 Urine WBC 0-2 /hpf (0-5) 08/20/16 16:00 Ur Epithelial Cells FEW /lpf (FEW) 08/20/16 16:00 Urine Bacteria FEW /hpf (NONE SEEN) 08/20/16 16:00 Vancomycin Trough 9.9 ug/mL (10-20) L 08/24/16 08:00 Hepatitis A IgM Ab Negative (Negative) 08/21/16 07:27 Hep Bs Antigen Negative (Negative) 08/21/16 07:27 Hep B Core IgM Ab Negative (Negative) 08/21/16 07:27 Hepatitis C Antibody <0.1 s/co ratio (0.0-0.9) 08/21/16 07:27 - Physical Exam Vitals and I&O: Vital Signs Temp 98.5 F 08/25/16 08:16 Pulse 80 08/25/16 11:06 Resp 20 08/25/16 11:06 BP 108/73 08/25/16 08:16 Pulse Ox 94 08/25/16 11:06 Intake & Output 08/24/16 08/25/16 08/25/16 18:59 06:59 18:59 Intake Total 900 300 Balance 900 300 Intake: Intake, IV Amount 50 300 Cefepime 1 gm In Dextrose 50 50 5% 50 ml @ 100 mls/hr IV Q12H [facility] Rx#:[id number] Vancomycin HCl 1.25 gm In 250 Sodium Chloride 0.9% 250 ml @ 165 mls/hr IV Q12H [facility] Rx#:[id number] Oral 850 Other: # Voids 3 Active Medications: Current Medications Acetaminophen (Tylenol) 650 mg PO Q4HR PRN PRN Reason: Pain or Fever >101 Stop: 10/19/16 15:13 Last Admin: 08/21/16 12:57 Dose: 650 mg Al Hydrox/Mg Hydrox/Simethicone (Maalox) 30 ml PO Q6HR PRN PRN Reason: Constipation Stop: 10/19/16 15:13 Albuterol Sulfate (Albuterol 2.5mg/3ml Neb Ud) 2.5 mg N QIDRT [facility] Stop: 10/23/16 10:59 Last Admin: 08/25/16 11:06 Dose: 2.5 mg Guaifenesin (Robitussin) 200 mg PO Q4HR PRN PRN Reason: Cough or Congestion Stop: 10/19/16 15:13 Last Admin: 08/23/16 16:35 Dose: 200 mg Guaifenesin (Mucinex) 1,200 mg PO Q12HR [facility] Stop: 10/22/16 20:59 Last Admin: 08/25/16 08:52 Dose: 1,200 mg Cefepime HCl 1 gm/ Dextrose 50 mls @ 100 mls/hr IV Q12H [facility] Stop: 10/19/16 15:14 Last Infusion: 08/25/16 04:00 Dose: Infused Sodium Chloride (Nacl 0.45%) 1,000 mls @ 80 mls/hr IV .[id number] [facility] Stop: 10/20/16 14:44 Last Admin: 08/23/16 05:04 Dose: 80 mls/hr Vancomycin HCl 1.25 gm/ Sodium (Chloride) 250 mls @ 165 mls/hr IV Q12H [facility] Stop: 10/23/16 20:59 Last Admin: 08/25/16 08:52 Dose: 165 mls/hr Ipratropium [place] (Atrovent Neb 0.5mg/2.5ml) 0.5 mg N QIDRT [facility] Stop: 10/19/16 16:59 Last Admin: 08/25/16 11:06 Dose: 0.5 mg Methylprednisolone Sodium Succinate (Solu-Medrol) 80 mg IVP Q8HR [facility] Stop: 10/23/16 12:59 Last Admin: 08/25/16 05:52 Dose: 80 mg Miscellaneous (Vancomycin Iv Per Pharmacy) 1 ea MC PRN [facility] Stop: 10/21/16 12:29 Ondansetron HCl (Zofran) 4 mg IV Q8H PRN PRN Reason: Nausea / Vomiting Stop: 10/19/16 15:13 Tramadol HCl (Ultram) 50 mg PO Q6HR PRN PRN Reason: Pain (Moderate) Stop: 10/20/16 14:30 Last Admin: 08/21/16 23:15 Dose: 50 mg Zolpidem Tartrate (Ambien) 10 mg PO HS PRN PRN Reason: Insomnia Stop: 10/19/16 15:12 Last Admin: 08/24/16 01:26 Dose: 10 mg General: alert HEENT: NC/AT, PERRLA Neck: Supple Lungs: CTAB Cardiovascular: RRR, Normal S1, Normal S2, without murmur Abdomen: soft non-tender, non-distended, positive bowel sound - Procedures Procedures: Procedures Procedure Code Date D & C NEC 69.09 12/05/95 DILATION AND CURETTAGE 06624 12/05/95 DX BRONCHOSCOPE/LAVAGE 64736 03/22/10 ENDOSCOPIC BRONCHIAL BX 33.24 03/22/10 IRIDECTOMY NEC 12.14 03/25/09 LAPAROSCOPIC CHOLECYSTECTOMY 51.23 02/20/12 LAPAROSCOPIC CHOLECYSTECTOMY 41405 02/20/12 REVISION OF IRIS 74237 03/25/09 Internal Medicine Assmt/Plan - Assessment Assessment: fever sepsis acute bronchitis and copd exac hyperglycemia leukocytosis hypokalemia - Plan Plan: insurance arranging home health bronchodilators cpm Nutritional Asmnt/Malnutr-PDOC - Dietary Evaluation Malnutrition Findings (Please click <Entered> for more info): Nutritional Asmnt/Malnutrition Start: 08/21/16 11: 55 Text: Status: Complete Freq: Document 08/21/16 11:55 [facility] (Rec: 08/21/16 12:02 [facility] [id number]) Nutritional Asmnt/Malnutrition Patient General Information Nutritional Screening High Risk Screening Diagnosis Sepsis without septic shock, probable pneumonia Pertinent Medical Hx/Surgical Hx None Subjective Information Pt is a 76-year-old female admitted with chief complaint of shortness of breath for 2 days. Pt was awake and alert during time of visit. Pt is a good historian. RD offered diet education but pt declined . Pt appears well nourished with no signs of muscle or fat depletion. Teeth intact. Pt reports UBW 125# one year ago and recently weighed 118# at clinic. Pt admits she does not eat breakfast regularly at home, except for coffee, but she would like to change that lifestyle. Current Diet Order/ Nutrition Support Low sodium Patient / S.O Can Pertinent Medications Cefepime, Solu-Medrol, Zofran, D5-0.45 ns with 20 Meq KCl Pertinent Labs (08/21) Glucose 162H (likely related to steroids), AST 54H and ALT 80H (improved) Nutritional Hx/Data Height 4 ft 11 in Height (Calculated Centimeters) 149.9 Current Weight (lbs) 118 lb Weight (Calculated Kilograms) 53.5 Weight (Calculated Grams) 30359.9 Usual body Weight (lbs) 125 Recent Weight Change Yes Weight Status Approriate GI Symptoms GI Symptoms None Food Allergies No Cultural/Ethnic/Cheondoism Belief No cultural preferences given, however, pt does not eat beef . She states she like vegetables and banana. Usual diet at home Regular Skin Integrity/Comment: Basim 21. Skin intact. Current %PO Good (75-100%) Estimated Nutritional Goals BEE in Kcals: Using Current wt Calories/Kcals/Kg Based on CBW 53.6 kg with consideration of sepsis Kcals Calculated 2483-5501 kcals/day (30-35 kcals/kg) Protein: Using Current wt Protein g/kg: Based on CBW 53.6 kg with consideration of sepsis Protein Calculated 64-80 gm/day (1.2-1.5 gm/kg) Fluid: ml 0730-4614 ml/day (1 ml/kcal) Nutritional Problem 1. Problem Problem Increased energy and protein needs related to Etiology increased metabolic demands as evidenced by Signs/Symptoms: diagnosis sepsis and possible pneumonia (per ER report). Malnutrition Alert Is there a minimum of two criteria No selected? Query Text:Check all the applicable criteria. A minimum of two criteria are recommended for diagnosis of either severe or non-severe malnutrition. Malnutrition Related to Morbid Obesity Malnutrition related to morbid obesity No Intervention/Recommendation Comments 1. Continue with current diet. Current diet and PO intake is adequate to meet estimated nutritional needs. [place] food preferences. Expected Outcomes/Goals Expected Outcomes/Goals Have pt meet at least 75% of estimated nutritional needs. Physician Parameters for PEM Normal Weight % 90% - 110% (Normal) Body Mass Index (BMI) 19 - 24 (Normal) Serum Albumin (g/dl) 3.1 - 3.4 (Mild) 08/21/16 12:02 Dietitian Notes by Rupa Barnhart Nutrition Note Initial Nutrition Assessment completed by Rupa Barnhart on 08/21/16. Please refer to nutrition assessment under Patient Care tab of EMR. Nutrition Recommendations: 1. Continue with current diet. Current diet and PO intake is adequate to meet estimated nutritional needs. [place] food preferences. F/U in 3-5 days as Moderate risk, 08/24-08/26. Initialized on 08/21/16 12:02 - END OF NOTE
[2016-08-25] MEDS ORDERED: Potassium Chloride 20 mEq ER Tab PO ONE (11:24)
[2016-08-25] MEDS ORDERED: predniSONE 5 mg/5 mL UDC PO SCH ×2 (17:00)
[2016-08-26] MEDS: Albuterol Nebulizer 2.5mg/3mL HHN SCH ×2 (07:12→11:00)
[2016-08-26] MEDS: Ipratropium Neb 0.5 mg/2.5 mL UD HHN SCH ×2 (07:13→11:00)
--- NOTE | 2016-08-26 20:49 | Discharge Summary ---
CHIEF COMPLAINT: Fever and shortness of breath. FINAL DIAGNOSES: Fever, pneumonia, acute asthma exacerbation, leukocytosis, electrolyte abnormalities with elevated liver function tests, and sepsis. HISTORY: This is a 76-year-old [place] female with a history of asthma, has had ongoing fever for 1 week, was evaluated in the ER, was found to have fever of 101 and admitted for management. PHYSICAL EXAMINATION: VITAL SIGNS: Blood pressure ____, respirations 18, ____. GENERAL: Elderly female, appears stated age. NECK: Supple. No mass. LUNGS: Equal breath sounds with few rhonchi, wheezing. HEART: Regular rate and rhythm without appreciable murmurs. ABDOMEN: Soft, nontender. EXTREMITIES: Positive excoriations. NEUROLOGIC: Limited. HOSPITAL COURSE: The patient was admitted to medical floor, continued on IV antibiotic and IV steroids. The patient was referred to Dr. Case from Pulmonary. CT angio was negative for PE. CT of chest showed right lower lobe infiltrates with consolidations with pleural thickening. The patient was slow to improve, was on IV steroids that was slowly decreased. Pulmonary ____. CONDITION ON DISCHARGE: Fair. DISCHARGE INSTRUCTIONS: The patient will be continued with IV antibiotics at home with home health. The patient is to return to ER if her condition worsens. [facility]# [id number]
== END 2016-08-26 13:22 | disposition home health service (06) | DRG 871 ==
LOC: ER 09:39 → TELE 14:12 → MSI 08-24 22:30
PROVIDERS: ADMIT Internal Medicine; ATTEND Internal Medicine
DX: A41.9 Sepsis, unspecified organism (principal); J96.01 Acute respiratory failure with hypoxia; J18.9 Pneumonia, unspecified organism; J44.0 Chronic obstructive pulmonary disease with (acute) lower respiratory infection; J44.1 Chronic obstructive pulmonary disease with (acute) exacerbation; J45.901 Unspecified asthma with (acute) exacerbation; J20.9 Acute bronchitis, unspecified; R73.9 Hyperglycemia, unspecified; E87.6 Hypokalemia; F17.210 Nicotine dependence, cigarettes, uncomplicated; Z90.49 Acquired absence of other specified parts of digestive tract
CPT/HCPCS: 36415-UA; 36600-90; 71010-TC; 71250-TC; 71275-TC; 73030-TC-LT; 80048-TC; 80053-TC; 80074-90; 80202-TC; 81001-TC; 82140-TC; 82607-90; 82746-90; 82803-TC; 83036-90; 83605; 83735-TC; 83880-TC; 84443-TC; 84484-TC; 85007-TC; 85025-TC; 85027-TC; 87070; 90779; 90784; 93005; 94640; 94760; J0692; J0696; J1030; J1644; J2920; J2930; J3370; J7030; J7042; J7512; J7613; Q9967; Z7610